=== PATIENT | male | born 2000 | race Caucasian/White ===

== ENCOUNTER 2024-03-01 13:05 | Outpatient (REF) | payer OTHER, SELFPAY | END 2024-03-01 13:06 | disposition home or self-care (01) | LOC: HO.BBR 13:05 | PROVIDERS: PCP Family Medicine; Visit Provider Internal Medicine Gastroenterology | DX: Z13.89 Encounter for screening for other disorder (principal) ==

== ENCOUNTER 2024-03-21 15:33 | Outpatient (REF) | payer OTHER, SELFPAY | END 2024-03-21 15:34 | disposition home or self-care (01) | LOC: HO.BBR 15:33 | PROVIDERS: PCP Family Medicine; Visit Provider Internal Medicine Gastroenterology | DX: Z13.89 Encounter for screening for other disorder (principal) ==

== ENCOUNTER 2024-04-04 15:38 | Outpatient (REF) | payer OTHER, SELFPAY ==
[2024-04-04 16:52] LABS: Ferritin 355 ng/mL (20-250)
--- OUTSIDE RECORDS SUMMARY | 2024-04-04 17:04 | XMS_ITS | Encounter Summary ---
Author Organization [facility] Address [address] [place] [address] Care Team Providers Care Mixing Plant Operator Name Role Phone Eugenia Doe MD Primary Care Provider [facility] Avani Rosenberg NP Primary Care Provider [phone] Nola Loja MD Primary Care Provider + Encounter Details Date Type Department Care Team Description 12/01/2018 Release of Information Medical Records [address] [place] [id number] Abstract, Provider Social History Tobacco Use Types Packs/Day Years Used Date Smoking Tobacco: Never Smokeless Tobacco: Never Comments:smokers outside Alcohol Use Standard Drinks/Week Comments Not Asked 0 (1 standard drink = 0.6 oz pur e alcohol) Sex Assigned at Date Recorded Not on file Job Start Date Occupation Industry Not on file Not on file Not on file documented as of this encounter Plan of Treatment Not on file documented as of this encounter Visit Diagnoses Not on filedocumented in this encounter Care Teams Mixing Plant Operator Relationship Specialty Start Date End Date Eugenia Doe MD PCP - General Pediatrics 11/05/12 12/22/19 Avani Johnson NP [address] [place] [address]44 PCP - General Pediatrics 12/23/19 06/12/22 Nola Loja MD [address] [place] [address]491 PCP - General Internal Medicine 06/13/22 documented as of this encounter
--- OUTSIDE RECORDS SUMMARY | 2024-04-04 17:04 | XMS_ITS | Clinical Summary ---
Author Organization [facility] [address] [facility] Address [address] [place] [address] Phone Care Team Providers Care Assistant Credit Manager Name Role Phone Nola Loja MD Primary Care Pr ovider Allergies Active Allergy Reactions Criticality Noted Date Comments Other 04/08/2021 Medications Medication Sig Dispensed Refills Start Date End Date Status triamcinolone (KENALOG) 0.025 % ointment Apply to affected area twice daily for 14 days 10/13/2023 Active Active Problems Problem Noted Date Diagnosed Date ADHD (attention deficit hyperactivity disorder) 01/15/2024 Overview (01/15/2024): On Strattera 18mg 01/14 - [facility] called for counseling, has an IEP in school - [facility] up for counseling at [facility] 11/18 No medication has IEP Had SSI Asperger syndrome 01/15/2024 Eczema 10/13/2023 Hepatic steatosis 10/24/2022 Underweight 01/25/2020 Overview (01/15/2024): 02/18 Tele GI Cyproheptadine, Complete stool testing., FU 6 month Spina bifida occulta 11/30/2017 Overview (01/15/2024): 12/17 Lower lumbar will refer to [facility] for further evaluation 12/17 Seen by [facility] no further evaluation needed Reassured mom this is normal varient Adolescent idiopathic scoliosis of thoracolumbar region 11/18/2017 Overview (01/15/2024): 12/17 Minimal at [facility] Recommend posture and hamstring stretching Short stature 11/18/2017 Intraventricular conduction delay 09/25/2014 Overview (01/15/2024): Found on EKG done for question of palpitations/tachycardia. Seen by Dr. Puga 10/14. Likely normal variant (and unrelated to complaint) but will follow by seeing yearly. 10/16 - mom reminded to call Dr. Puga for follow up 11/17 Reminded mom again 11/18 Referral placed for FU 12/[address] Puga EKG Indeterminate QRS axis and Voltage evidence of R Ventricular hypertrophy. Had to leave for school Echo in the summer 09/18 Echo completed Normal structure of heart And great vessels. PDD (pervasive developmental disorder) 9 Development delay 07/07/2008 Encounters Date Type Department Care Team Description 03/03/2024 Telephone Gastroenterology - [address] [address] Macrina Oliver MA 02/19/2024 11:00 AM EST Lab Draw Station - [address] [facility] [address] [place] [address] [place] [address] Hereditary hemochromatosis (CMS/HCC) 02/19/2024 10:45 AM EST Office Visit Gastroenterology - [address] [address] Adelia Alexandre MD Hereditary hemochromatosis (CMS/HCC) (Primary Dx) 02/19/2024 Telephone Gastroenterology - [address] [place] [address] [address] Macrina Oliver MA 02/19/2024 Telephone Gastroenterology - [address] [place] [address] [address] Macrina Oliver MA from Last 3 Months Immunizations Name Administration Dates Next Due DTaP (Infanrix) 6wks to less than 7yo ,04/06/2006,07/04/2003,10/21,2002,2002 [id number] (Pentacel) 2mo to less than 5yo 09/15/2006,08/11/2006,07/04/2003,10/21,2002,2002 HPV, Quadrivalent 06/16/2014,12/02/2013,10/01/19 14 Hepatitis B Pediatric (Enger ix B; Recombivax HB) to less than 20 yo 08/11/2006,01/23/2003,2002,04/02 IPV Inactivated polio (Ipol) 6wks and older 08/11/2006,04/26/2006,01/23/2003,08/15,2002 Influenza trivalent, 0.5mL, preservative free (Fluarix; FluLaval; Fluzone) ages 6mo and older (Afluria) 3 years and older 01/25/2020,11/18/2017,11/17/2016,12/05 Influenza trivalent, with pr eservative (Fluzone; Afluria) 6mo and older 11/23/2007,12/24/2006 MMR, measles mumps and rubel la Live (Priorix; M-M-R II) 12mo and older 09/15/2006,04/05/2003 MMRV, measles mumps rubella and varicella live (Proquad) 4yo to less than 7yo 04/06/2006 Meningococcal MCV4P 11/18/2018,06/16/2014 Pneumococcal Conjugate Vacci ne, 7 Valent 2004,2002,2002,05/30 Tdap Tetanus diptheria acell ular pertussis (Boostrix; Adacel) 7yo and older 09/30/2013 Varicella live (Varivax) 12m o and older 09/15/2006 Surgical History Surgery Date Site/Laterality Comments OTHER SURGICAL HISTORY PROCEDURE: DENIES PREVIOUS SURGERY Medical History Medical History Date Comments Development delay DX:Development delay; COMMENT: has OT; IEP at school Allergic rhinitis DX:Allergic rh initis Speech delay DX:Speech delay; COMMENT: has Speech Therapy Reactive airway disease DX:React dimitri airway disease Otitis 02/07 DX:Otitis Asperger syndrome DX:Asperger sy ndrome ADHD (attention deficit hype ractivity disorder) DX:ADHD (attention deficit hyperactivity disorder); COMMENT: on Strattera Learning disorder DX:Learning di sorder 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 Family History Medical History Relation Name Comments Thyroid disease Mother Allergies Other 1 Both Sides Asthma Other 2 Paternal Side Relation Name Status Comments Mother Other 1 Other 2 Social History Tobacco Use Types Packs/Day Years Used Date Smoking Tobacco: Never Smokeless Tobacco: Never Alcohol Use Standard Drinks/Week Comments Not Currently 0 (1 standard drink = 0.6 oz pur e alcohol) Sex and Gender Information Value Date Recorded Sex Assigned at Not on file Gender Identity Not on file Sexual Orientation Not on file Job Start Date Occupation Industry Not on file Not on file Not on file Obstetrics History Last Filed Vital Signs Vital Sign Reading Time Taken Comments Blood Pressure 110/80 10/13/2023 2:38 PM EDT Pulse 94 10/13/2023 2:38 PM EDT Temperature - - Respiratory Rate - - Oxygen Saturation - - Inhaled Oxygen Concentration - - Weight 56.2 kg (124 lb) 02/19/2024 10:40 AM EST Height 172.7 cm (5' 8 ) 02/19/2024 10:40 AM EST Body Mass Index 18.85 02/19/2024 10:40 AM EST Plan of Treatment Health Maintenance Due Date Last Done Comments Pneumococcal Vaccine: Pediatrics (0 to 5 Years) and At-Risk Patients (6 to 64 Years) (1 of 1 - PPSV23 or PCV20) 2008 2004, 2002, 2002, Additional history exists Depression Screening 02/01/2022 HIV Screening 02/01/2022 Hepatitis C Screening 02/01/2022 Social Influencers of Health Screening 02/01/2022 DTaP,Tdap,and Td Vaccines (7 - Td or Tdap) 10/01/2023 09/30/2013, 09/15/2006, 08/11/2006, Additional history exists COVID-19 Vaccine ( - season) 2023 09/14/2020, 08/17/2020 Influenza Vaccine (#1) 2023 , 11/18/2017, 11/17/2016, Additional history exists Cholesterol Screening (Lipid Panel) 10/11/2027 10/10/2022 Hepatitis B Vaccines Completed 08/11/2006, 01/23/2003, 2002, Additional history exists HIB Vaccines Completed 09/15/2006, 08/30, 08/11/2006, Additional history exists IPV Vaccines Completed 09/15/2006, 07/31, 08/11/2006, Additional history exists MMR Vaccines Completed 09/15/2006, 06/2006, 04/05/2003 Varicella Vaccines Completed 09/15/2006, 04/06/2006 HPV Vaccines Completed 06/16/2014, 04/2013, 09/30/2013 Meningococcal ACWY Vaccine Completed 11/18/2018, Hepatitis A Vaccines Aged Out No long er eligible based on patient's age to complete this topic RSV Immunization Patients Under 20 months Aged Out No longer eligible based on patient's age to complete this topic Procedures Procedure Name Priority Date/Time Associated Diagnosis Comments EXTERNAL CLINICAL LAB 03/22/2024 EXTERNAL CLINICAL LAB 03/02/2024 CBC WITH AUTO DIFFERENTIAL Routine 02/19/2024 11:05 AM EST Hereditary hemochromatosis (CMS/HCC) CBC AND DIFFERENTIAL Routine 02/19/2024 11:05 AM EST Hereditary hemochromatosis (CMS/HCC) FERRITIN Routine 02/19/2024 11:05 AM EST Hereditary hemochromatosis (CMS/HCC) IRON AND TIBC Routine 02/19/2024 11:05 AM EST Hereditary hemochromatosis (CMS/HCC) LIPID PANEL Routine 10/10/2022 from Last 3 Months or Most Recently Relevant to Health Maintenance Results * External clinical lab (03/22/2024) Only the most recent of2 resultswithin the time period is included. Provider [facility] LAB BLOOD ORDERA BLES * CBC auto differential (02/19/2024 11:05 AM EST) WBC 5.6 4.8 - 10.8 K/[facility] LAB HEMETOLOGY METHOD 02/19/2024 12:57 PM [facility] RBC 4.90 4.50 - 5.50 M/mcL LAB HEMETOLOGY METHOD 02/19/2024 12:57 PM [facility] Hemoglobin 15.3 13.5 - 17.5 g/dL LAB HEMETOLOGY METHOD 02/19/2024 12:57 PM [facility] Hematocrit 45.4 42.0 - 54.0 % LAB HEMETOLOGY METHOD 02/19/2024 12:57 PM [facility] MCV 93.4 79.0 - 98.0 FL LAB HEMETOLOGY METHOD 02/19/2024 12:57 PM [facility] MCH 31.5 27.0 - 32.0 pcg LAB HEMETOLOGY METHOD 02/19/2024 12:57 PM [facility] MCHC 33.7 32.0 - 37.0 g/dL LAB HEMETOLOGY METHOD 02/19/2024 12:57 PM [facility] RDW 12.0 11.0 - 15.0 % LAB HEMETOLOGY METHOD 02/19/2024 12:57 PM [facility] Platelets 343 130 - 400 K/mcL LAB HEMETOLOGY METHOD 02/19/2024 12:57 PM [facility] MPV 9.1 7.0 - 11.0 FL LAB HEMETOLOGY METHOD 02/19/2024 12:57 PM [facility] NRBC 0.0 <1.0 % LAB HEMETOLOGY METHOD 02/19/2024 12:57 PM [facility] NRBC Absolute 0.00 <0.10 K/mcL LAB HEMETOLOGY METHOD 02/19/2024 12:57 PM [facility] Neutrophils Relative 54.7 % LAB HEMETOLOGY METHOD 02/19/2024 12:57 PM [facility] Lymphocytes Relative 32.1 % LAB HEMETOLOGY METHOD 02/19/2024 12:57 PM [facility] Monocytes Relative 8.1 % LAB HEMETOLOGY METHOD 02/19/2024 12:57 PM [facility] Eosinophils Relative 3.8 % LAB HEMETOLOGY METHOD 02/19/2024 12:57 PM [facility] Basophils Relative 1.1 % LAB HEMETOLOGY METHOD 02/19/2024 12:57 PM [facility] Immature Granulocytes Relative 0.2 % LAB HEMETOLOGY METHOD 02/19/2024 12:57 PM [facility] Neutrophils Absolute 3.04 1.50 - 7.00 K/mcL LAB HEMETOLOGY METHOD 02/19/2024 12:57 PM [facility] Lymphocytes Absolute 1.78 1.00 - 5.00 K/mcL LAB HEMETOLOGY METHOD 02/19/2024 12:57 PM [facility] Monocytes Absolute 0.45 0.20 - 1.00 K/mcL LAB HEMETOLOGY METHOD 02/19/2024 12:57 PM [facility] Eosinophils Absolute 0.21 0.00 - 0.50 K/mcL LAB HEMETOLOGY METHOD 02/19/2024 12:57 PM [facility] Basophils Absolute 0.06 0.00 - 0.20 K/mcL LAB HEMETOLOGY METHOD 02/19/2024 12:57 PM [facility] Immature Granulocytes Absolute 0.01 0.00 - 0.03 K/mcL LAB HEMETOLOGY METHOD 02/19/2024 12:57 PM [facility] Blood Venous blood specimen / Unknown Venipuncture / Unknown 02/19/2024 11:05 AM EST 02/19/2024 12:31 PM EST Adelia Alexandre MD LAB BLOOD ORDERABLES [facility] [address] [place] [address], [place] [phone] * (ABNORMAL) Iron and TIBC (02/19/2024 11:05 AM EST) Pathologist [facility] Iron 225(H) 50 - 160 mcg/dL LAB CHEMISTRY METHOD 02/19/2024 2:[address] [facility] TIBC 240(L) 250 - 450 mcg/dL LAB CHEMISTRY METHOD 02/19/2024 2:[address] [facility] Iron Saturation 94(H) 20 - 50 % LAB CHEMISTRY METHOD 02/19/2024 2:[address] [facility] Blood Venous blood specimen / Unknown Venipuncture / Unknown 02/19/2024 11:05 AM EST 02/19/2024 12:31 PM EST Adelia Alexandre MD LAB BLOOD ORDERABLES Performing Organization Address City/[facility]/ZIP Co de Phone Number [facility] [address] [place] [address], [place] [phone] * (ABNORMAL) Ferritin (02/19/2024 11:05 AM EST) [facility] Ferritin 684(H) 26 - 388 ng/mL LAB CHEMISTRY METHOD 02/19/2024 2:[address] [facility] Blood Venous blood specimen / Unknown Venipuncture / Unknown 02/19/2024 11:05 AM EST 02/19/2024 12:31 PM EST Adelia Alexandre MD LAB BLOOD ORDERABLES [facility] [address] [place] [address], [place] [phone] * Lipid panel (10/10/2022) [facility] LDL/HDL Ratio 2 0 - 4 Triglycerides 77 0 - 150 mg/dL Cholesterol 171 0 - 200 mg/dL HDL 78 40 mg/dL LDL Cholesterol 78 0 - 100 mg/dL Blood Venous blood specimen / Unknown Historical Provider LAB BLOOD ORDERAB LES from Last 3 Months or Most Recently Relevant to Health Maintenance Care Teams Assistant Credit Manager Relationship Specialty Start Date End Date Nola Loja MD [address] [facility] [place] [id number] PCP - General Internal Medicine 02/19/24
--- OUTSIDE RECORDS SUMMARY | 2024-04-04 17:04 | XMS_ITS | Encounter Summary ---
Author Organization [facility] Address [address] [place] [address] Care Team Providers Care Health Science Instructor Name Role Phone Eugenia Doe MD Primary Care Provider [facility]ail Avani Rosenberg NP Primary Care Provider [phone] Nola Loja MD Primary Care Provider + Encounter Details Date Type Department Care Team Description 12/16/2017 Nurse Administrator Report Medical Records [address] [place] [address] Children, [facility] For Social History Tobacco Use Types Packs/Day Years [...] on filedocumented in this encounter Care Teams Health Science Instructor Relationship Specialty Start Date End Date Eugenia Doe MD PCP - General Pediatrics 11/05/12 12/22/19 Avani Johnson NP [address] [place] [address] PCP - General Pediatrics 12/23/19 06/12/22 Nola Loja MD [address] [place] [address] PCP - General Internal Medicine 06/13/22 documented as of this encounter
--- OUTSIDE RECORDS SUMMARY | 2024-04-04 17:04 | XMS_ITS | Encounter Summary ---
Author Organization [facility] Address [address] [place] [address] Care Team Providers Care Manager Med Surg Name Role Phone Eugenia Doe MD Primary Care Provider [facility] Avani Rosenberg NP Primary Care Provider [phone] Nola Loja MD Primary Care Provider + Encounter Details Date Type Department Care Team Description 05/10/2014 MACHINE FIXER/MassPat Report Medical Records [address] [place] [address] Abstract, Provider Social History Tobacco Use Types Packs/Day Years Used Date Smoking Tobacco: Passive Smo ke Exposure - Never Smoker Comments:mirian'oleg Alcohol Use Standard Drinks/Week Comments Not Asked [...] on filedocumented in this encounter Care Teams Manager Med Surg Relationship Specialty Start Date End Date Eugenia Doe MD PCP - General Pediatrics 11/05/12 12/22/19 Avani Johnson NP [address] [place] [address] PCP - General Pediatrics 12/23/19 06/12/22 Nola Loja MD [address] [place] [address] [phone] PCP - General Internal Medicine 06/13/22 documented as of this encounter
--- OUTSIDE RECORDS SUMMARY | 2024-04-04 17:04 | XMS_ITS | Encounter Summary ---
Author Organization [facility] Address [address] [place] [address] Care Team Providers Care Rounding Machine Tender Name Role Phone Eugenia Doe MD Primary Care Provider Unavail Avani Rosenberg NP Primary Care Provider [phone] Nola Loja MD Primary Care Provider + Encounter Details Date Type Department Care Team Description 09/22/2014 Chemical Recovery Operator Report Medical Records [address] [place] [address] Dionisio Puga Social History Tobacco Use Types Packs/Day Years [...] on filedocumented in this encounter Care Teams Rounding Machine Tender Relationship Specialty Start Date End Date Eugenia Doe MD PCP - General Pediatrics 11/05/12 12/22/19 Avani Johnson NP [address] [place] [address] PCP - General Pediatrics 12/23/19 06/12/22 Nola Loja MD [address] [place] [address] [phone] PCP - General Internal Medicine 06/13/22 documented as of this encounter
--- OUTSIDE RECORDS SUMMARY | 2024-04-04 17:04 | XMS_ITS | Encounter Summary ---
Author Organization [facility] Address [address] [place] [address] Care Team Providers Care Community Development Worker Name Role Phone Avani Johnson NP Primary Care Provider [phone] Nola Loja MD Primary Care Provider + Reason for Visit * Reason Onset Date Comments Pedi 04/09/2021 Encounter Details Date Type Department Care Team Description 04/09/2021 Telephone Adult Medicine - [place] [address] [place] [address] Avani Johnson NP [address] [place] [address] Pedi Social History Tobacco Use Types Packs/Day Years Used Date Smoking Tobacco: Never Smokeless Tobacco: Never Comments:smokers outside Alcohol Use Standard Drinks/Week Comments Not Asked 0 (1 standard drink = 0.6 oz pur e alcohol) Sex Assigned at Date Recorded Not on file Job Start Date Occupation Industry Not on file Not on file Not on file COVID-19 Exposure Response Date Recorded In the last month, have you been in contact with someone who was confirmed or suspected to have Coronavirus / COVID-19? No / Unsure 04/08/2021 2:35 PM EST documented as of this encounter Miscellaneous Notes * Telephone Encounter - Doris Longoria M.A. - 05/03/2021 1:37 PM EST Ensure was denied, [facility] states they have notified parents of denial Fyi to [place] [phone] Prior Auth jose Longoria M.A. Regional Prior Authorizations Ext [phone] Fax: [phone] [place] [phone] Prior Keren garcia * Telephone Encounter - Doris Longoria M.A. - 04/29/2021 10:49 AM EST Spoke to dimas on 04/29 and the authorization is still pending on the ensure * Telephone Encounter - Doris Longoria M.A. - 04/15/2021 4:21 PM EST Spoke to dimas and paperwork was not received refaxed * Telephone Encounter - Doris Longoria M.A. - 04/09/2021 11:48 AM EST Faxed to [facility]as Medical necessity letter Formula script Insurance info Growth charts [facility] notes documented in this encounter Plan of Treatment Not on file documented as of this encounter Visit Diagnoses Not on filedocumented in this encounter Care Teams Community Development Worker Relationship Specialty Start Date End Date Avani Johnson NP [address] [place] [address] PCP - General Pediatrics 12/23/19 06/12/22 Nola Loja MD [address] [place] [address] PCP - General Internal Medicine 06/13/22 documented as of this encounter
--- OUTSIDE RECORDS SUMMARY | 2024-04-04 17:04 | XMS_ITS | Encounter Summary ---
Author Organization [facility] Address [address] [place] [address] Care Team Providers Care Web Analytics Specialist Name Role Phone Eugenia Doe MD Primary Care Provider [facility] Avani Rosenberg NP Primary Care Provider [phone] Nola Loja MD Primary Care Provider + Encounter Details Date Type Department Care Team Description 09/06/2019 Property Damage Claims Adjustor Report Medical Records [address] [place] [address] Dionisio Puga Social History Tobacco Use Types [...] on filedocumented in this encounter Care Teams Web Analytics Specialist Relationship Specialty Start Date End Date Eugenia Doe MD PCP - General Pediatrics 11/05/12 12/22/19 Avani Johnson NP [address] [place] [address] PCP - General Pediatrics 12/23/19 06/12/22 Nola Loja MD [address] [place] [address] PCP - General Internal Medicine 06/13/22 documented as of this encounter
--- OUTSIDE RECORDS SUMMARY | 2024-04-04 17:04 | XMS_ITS | Encounter Summary ---
Author Organization [facility] Address [address] [place] [address] Care Team Providers Care Food Service Worker Name Role Phone Eugenia Doe MD Primary Care Provider Unavail Avani Rosenberg NP Primary Care Provider [phone] Nola Loja MD Primary Care Provider + Encounter Details Date Type Department Care Team Description 09/22/2014 Annual Giving Officer Report Medical Records [address] [place] [address] Dionisio Puga Social History Tobacco Use Types [...] on filedocumented in this encounter Care Teams Food Service Worker Relationship Specialty Start Date End Date Eugenia Doe MD PCP - General Pediatrics 11/05/12 12/22/19 Avani Johnson NP [address] [place] [address] PCP - General Pediatrics 12/23/19 06/12/22 Nola Loja MD [address] [place] [address] [phone] PCP - General Internal Medicine 06/13/22 documented as of this encounter
--- OUTSIDE RECORDS SUMMARY | 2024-04-04 17:04 | XMS_ITS | Encounter Summary ---
Author Organization [facility] Address [address] [place] [address] Care Team Providers Care Litigation Assistant Name Role Phone Eugenia Doe MD Primary Care Provider [facility] Avani Rosenberg NP Primary Care Provider [phone] Nola Loja MD Primary Care Provider + Encounter Details Date Type Department Care Team Description 12/29/2016 Release of Information Medical Records [address] [place] [id number] Abstract, Provider Social History Tobacco Use Types [...] on filedocumented in this encounter Care Teams Litigation Assistant Relationship Specialty Start Date End Date Eugenia Doe MD PCP - General Pediatrics 11/05/12 12/22/19 Avani Johnson NP [address] [place] [address] PCP - General Pediatrics 12/23/19 06/12/22 Nola Loja MD [address] [place] [address] PCP - General Internal Medicine 06/13/22 documented as of this encounter
== END 2024-04-04 15:39 | disposition home or self-care (01) ==
LOC: HO.BBR 15:38
PROVIDERS: PCP Family Medicine; Visit Provider Internal Medicine Gastroenterology
DX: E83.110 Hereditary hemochromatosis (principal)
CPT/HCPCS: 36415; 82728

== ENCOUNTER 2024-04-22 10:48 | Outpatient (REF) | payer OTHER, SELFPAY ==
--- OUTSIDE RECORDS SUMMARY | 2024-04-22 11:53 | XMS_ITS | Encounter Summary ---
Author Organization [facility] Address [address] [place] [address] Care Team Providers Care Bagger Meat Name Role Phone Eugenia Doe MD Primary Care Provider Unavail Avani Rosenberg NP Primary Care Provider [phone] Nola Loja MD Primary Care Provider + Encounter Details Date Type Department Care Team Description 12/16/2017 Quality Engineer Medical Device Report Medical Records [address] [place] [address] Children, [facility] Social History Tobacco Use Types Packs/Day [...] on filedocumented in this encounter Care Teams Bagger Meat Relationship Specialty Start Date End Date Eugenia Doe MD PCP - General Pediatrics 11/05/12 12/22/19 Avani Johnson NP [address] [place] [address] PCP - General Pediatrics 12/23/19 06/12/22 Nola Loja MD [address] [place] [id number] PCP - General Internal Medicine 06/13/22 documented as of this encounter
--- OUTSIDE RECORDS SUMMARY | 2024-04-22 11:53 | XMS_ITS | Encounter Summary ---
Author Organization [facility] Address [address] [place] [address] Care Team Providers Care Securities Counselor Name Role Phone Eugenia Doe MD Primary Care Provider [facility] Avani Rosenberg NP Primary Care Provider [phone] Nola Loja MD Primary Care Provider + Encounter Details Date Type Department Care Team Description 12/22/2018 Babysitter Report Medical Records [address] [place] [address] Dionisio Puga Social History Tobacco Use Types [...] on filedocumented in this encounter Care Teams Securities Counselor Relationship Specialty Start Date End Date Eugenia Doe MD PCP - General Pediatrics 11/05/12 12/22/19 Avani Johnson NP [address] [place] [phone] PCP - General Pediatrics 12/23/19 06/12/22 Nola Loja MD [address] [place] [phone] PCP - General Internal Medicine 06/13/22 documented as of this encounter
--- OUTSIDE RECORDS SUMMARY | 2024-04-22 11:53 | XMS_ITS | Encounter Summary ---
Author Organization [facility] Address [address] [place] [address] Care Team Providers Care Critical Care Unit Nurse Name Role Phone Eugenia Doe MD Primary Care Provider [facility] Avani Rosenberg NP Primary Care Provider [phone] Nola Loja MD Primary Care Provider + Encounter Details Date Type Department Care Team Description 09/06/2019 Ratchet Setter Report Medical Records [address] [place] [address] Dionisio Puga Social History Tobacco Use Types [...] on filedocumented in this encounter Care Teams Critical Care Unit Nurse Relationship Specialty Start Date End Date Eugenia Doe MD PCP - General Pediatrics 11/05/12 12/22/19 Avani Johnson NP [address] [place] [address] PCP - General Pediatrics 12/23/19 06/12/22 Nola Loja MD [address] [place] [address] PCP - General Internal Medicine 06/13/22 documented as of this encounter
--- OUTSIDE RECORDS SUMMARY | 2024-04-22 11:53 | XMS_ITS | Encounter Summary ---
Author Organization [facility] Address [address] [place] [address] Care Team Providers Care Chemist Organic Name Role Phone Nola Loja MD Primary Care Pr ovider Encounter Details Date Type Department Care Team (Late st Contact Info) Description 04/05/2024 Telephone Gastroenterology - [address] [place] [address] Macrina Oliver MA Social History Tobacco Use Types Packs/Day Years Used Date Smoking Tobacco: Never Smokeless Tobacco: Never Alcohol Use Standard Drinks/Week Comments Not Currently 0 (1 standard drink = 0.6 oz pur e alcohol) Sex and Gender Information Value Date Recorded Sex Assigned at Not on file Legal Sex Male 9:56 PM EST Gender Identity Not on file Sexual Orientation Not on file documented as of this encounter Progress Notes * Macrina Oliver MA - 04/05/2024 12:54 PM EST Spoke with pt per Dr Alexandre ferritin is improving. Was 684 in January 355. Phlebotomy is working. Goal is Ferritin 50 or below. Then pt will only need phlebotomy a few times a year. * Macrina Oliver MA - 04/05/2024 12:54 PM EST ----- Message from Doe Alexandre MD sent at 04/05/2024 12:37 PM EST ----- Ferritin is improving. Was 684 in January 355. Phlebotomy is working. Good! Goal is [id number] or below. Then you will only need phlebotomy a few times a year. documented in this encounter Plan of Treatment Not on file documented as of this encounter Visit Diagnoses Not on filedocumented in this encounter Care Teams Chemist Organic Relationship Specialty Start Date End Date Nola Loja MD [address] [place] [id number] PCP - General Internal Medicine 02/19/24 documented as of this encounter
--- OUTSIDE RECORDS SUMMARY | 2024-04-22 11:53 | XMS_ITS | Encounter Summary ---
Author Organization [facility] Address [address] [place] [address] Care Team Providers Care Structural Iron Erector Name Role Phone Avani Johnson NP Primary Care Provider [phone] Nola Loja MD Primary Care Provider + Encounter Details Date Type Department Care Team Description 02/22/2020 Welder/Fabricator Report Medical Records [address] [place] [address] Christopher Asher MD Social History Tobacco Use Types Packs/Day Years [...] have Coronavirus / COVID-19? No / Unsure 01/25/2020 10:26 AM EST documented as of this encounter Plan of Treatment Not on file documented as of this encounter Visit Diagnoses Not on filedocumented in this encounter Care Teams Structural Iron Erector Relationship Specialty Start Date End Date Avani Johnson NP [address] [place] [address] PCP - General Pediatrics 12/23/19 06/12/22 Nola Loja MD [address] [place] [address] [phone] PCP - General Internal Medicine 06/13/22 documented as of this encounter
--- OUTSIDE RECORDS SUMMARY | 2024-04-22 11:53 | XMS_ITS | Encounter Summary ---
Author Organization [facility] Address [address] [place] [address] Care Team Providers Care Jet Worker Name Role Phone Eugenia Doe MD Primary Care Provider Unavail Avani Rosenberg NP Primary Care Provider [phone] Nola Loja MD Primary Care Provider + Encounter Details Date Type Department Care Team Description 09/22/2014 Heat Treat Worker Report Medical Records [address] [place] [address] Dionisio Puga Social History Tobacco Use Types [...] on filedocumented in this encounter Care Teams Jet Worker Relationship Specialty Start Date End Date Eugenia Doe MD PCP - General Pediatrics 11/05/12 12/22/19 Avani Johnson NP [address] [place] [address] PCP - General Pediatrics 12/23/19 06/12/22 Nola Loja MD [address] [place] [address] PCP - General Internal Medicine 06/13/22 documented as of this encounter
--- OUTSIDE RECORDS SUMMARY | 2024-04-22 11:53 | XMS_ITS | Clinical Summary ---
Author Organization [facility] Address [address] [place] [address] Care Team Providers Care Slat Basket Maker Name Role Phone Nola Loja MD Primary Care Provider + Allergies Active Allergy Reactions Severity Noted Date Comments Seasonal Allergies 04/08/2021 Medications Medication Sig Dispensed Refills Start Date End Date Status triamcinolone (KENALOG) 0.025 % ointment Apply to affected area twice daily for 14 days 30 g 1 10/13/2023 Active Active Problems Patient Care Coordination No te Formatting of this note is d ifferent from the original. If you or your child's teachers are noticing that Jose is demonstrating any of the following behaviors on a frequent basis, please share this with his doctor ?? not paying attention ?? daydreaming a lot ?? not being able to fall asleep easily ?? not listening ?? being easily distracted form schoolwork or play ?? forgetting things ?? in constant motion, can't sit still ?? squirming or fidgeting ?? talking too much ?? not being able to play quietly ?? acting and speaking without thinking ?? unable to wait for his turn ?? interrupting others Jose's Care Goals In order to best manage your child's ADHD it is important to have clear care goals. These goals include: ?? working with the school/teachers, other family members and adults who see the child regularly (coaches, music instructors, etc) to help manage the symptoms of ADHD ?? taking medication as directed by your child's doctor ?? meeting with a therapist regularly if this is part of your treatment plan Your Results and your Goals Your Result/Date of Completion Your Goal/How Often Wt Readings from Last 1 Encounters: 12/26/14 68 lb (30.845 kg) (1.84%*) * Growth percentiles are based on CDC 2-20 Years data. Maintain Healthy Weight Your Action Plan Your ADHD is well controlled and no changes are required to your current plan. Contact me if you experience any barriers to care such as inability to purchase your medication, difficulty getting to your appointments or difficulty understanding your care plan Mom knows to call if dosing needs adjustment Strattera 18mg daily for academic year daily. Educational Resources Center for Disease Control (www.cdc.gov/ncbddd/adhd/) [place] [employer] Pediatrics (www.aap.org/healthtopics/adhd.cfm) National Resource Center for ADHD (www.vegq7kfto.org) Children and Adults with Attention Deficit Hyperactivity Disorder (www.christopher.org) [place] [employer] Access Project (www.mcpap.TubeMogul) This care plan was created in collaboration with Jose Jo on 12/26/2014 Problem Noted Date Eczema 10/13/2023 Hepatic steatosis 10/24/2022 Underweight 01/25/2020 Overview: 02/18 Tele GI Cyproheptadine, Complete stool testing., FU 6 month Spina bifida occulta 11/30/2017 Overview: 12/17 Lower lumbar will refer to [facility] for further evaluation 12/17 Seen by Arias no further evaluation needed Reassured mom this is normal varient Short stature 11/18/2017 Adolescent [facility] 11/18/2017 Overview: 12/17 Minimal at [facility] Recommend posture and hamstring stretching Intraventricular conduction delay 2014 Overview: Found on EKG done for question of [...] And great vessels. PDD (pervasive developmental disorder) 1 Development delay 07/07/2008 Asperger syndrome ADHD (attention deficit hyperactivity di sorder) Overview: On Strattera 18mg 01/14 - [facility] called for counseling, has an IEP in school - set up for counseling at [facility] 11/18 No medication has IEP Had SSI Resolved Problems Problem Noted Date Resolved Date Family circumstance 07/12/2018 04/08/2021 Overview: 07/18 DCF called in for update Immunizations Name Administration Dates Next Due COVID-19 (Moderna) 09/14/2020,08/17/2020 DTaP 08/11/2006, 7,07/04/2003,10/21,2002,2002 HIB 09/15/2006, 7,07/04/2003,10/21,2002,2002 HPV (Gardasil) 06/16/2014,12/02/2013,09/30/2013 Hepatitis B-3 Dose (<19yrs) 08/11/2006,1 2002,2002,04/02 Influenza (6-35 months) 11/23/2007,12/24/2006 Influenza (> 6 Months) 12/05/2008 Influenza (>6 Months) Split Preservative Free 01/25/2020,11/18/2017,11/17/2016 Influenza Vaccine-quadrivale nt 4 Years Plus 11/18/2017 MMR (Aeplnqz-Kzwmr-Ducwejj) 09/15/2006, 4 MMRV (Szacjmf-Letvy-Atsxifq-Varicella) 7 Meningococcal (Menactra) 11/18/2018,06/16/2014 Pneumococcal(Pedi) Conjugate PCV-7 04/01,2002,2002,05/30 Polio (IPV) 08/11/2006, 7,01/23/2003,08/15,2002 Tdap 09/30/2013 Varicella 09/15/2006 Family History Medical History Relation Name Comments Thyroid Disorder Mother Allergies Other 1 Both Sides Asthma Other 2 Paternal Side Relation Name Status Comments Mother Other 1 Other 2 Social History Tobacco Use Types Packs/Day Years Used Date Smoking Tobacco: Never Smokeless Tobacco: Never Tobacco Cessation:Counseling Given: Not Answered Comments:smokers outside Alcohol Use Standard Drinks/Week Comments Not Currently 0 (1 standard drink = 0.6 oz pur e alcohol) Sex Assigned at Date Recorded Not on file Job Start Date Occupation Industry Not on file Not on file Not on file Last Filed Vital Signs Vital Sign Reading Time Taken Comments Blood Pressure 110/80 10/13/2023 2:38 PM EDT Pulse 94 10/13/2023 2:38 PM EDT Temperature 36.7 ??C (98 ??F) 10/13/2023 2:38 PM EDT Respiratory Rate 12 10/13/2023 2:38 PM EDT Oxygen Saturation 98% 10/10/2022 11:58 AM EDT Inhaled Oxygen Concentration - - Weight 59.4 kg (131 lb) 10/13/2023 2:38 PM EDT Height 174 cm (5' 8.5 ) 10/13/2023 2:38 PM EDT Body Mass Index 19.63 10/13/2023 2:38 PM EDT Plan of Treatment Health Maintenance Due Date Last Done Comments GONORRHEA & CHLAMYDIA SCREENING 04/08/2022 04/08/2021, 01/25/2020, 11/18/2018 DTAP/TDAP/TD (7 - Td or Tdap) 10/01/2023, 08/11/2006, 04/06/2006, Additional history exists Covid-19 Vaccine (3 - 2022-2 4 season) 2023 09/14/2020, 08/17/2020 INFLUENZA (#1) 2023 01/25/2020, 10/31, 11/18/2017, Additional history exists DEPRESSION SCREENING/FOLLOWUP 03/02/2024 (Completed), 04/08/2021, 01/25/2020, Additional history exists SOCIAL NEEDS SCREENING 03/02/2024 , 01/25/2020, 11/18/2018 BASELINE HEALTH EXAM 18-39 10/11/2027 10/10/2022, CHOLESTEROL SCREENING 10/11/2027 10/10/2022 PNEUMOCOCCAL VACCINE FOR HIG H RISK PATIENTS (#1) 2067 HUMAN PAPILLOMAVIRUS (HPV) Completed 06/16, 12/02/2013, 09/30/2013 Care Teams Slat Basket Maker Relationship Specialty Start Date End Date Nola Loja MD [address] [place] [phone] PCP - General Internal Medicine 06/13/22
--- OUTSIDE RECORDS SUMMARY | 2024-04-22 11:53 | XMS_ITS | Encounter Summary ---
Author Organization [facility] Address [address] [place] [address] Care Team Providers Care School Director Name Role Phone Eugenia Doe MD Primary Care Provider Unavail Avani Rosenberg NP Primary Care Provider [phone] Nola Loja MD Primary Care Provider + Encounter Details Date Type Department Care Team Description 09/22/2014 Lay Out And Detail Drafter Report Medical Records [address] [place] [address] Dionisio Puga Social History Tobacco Use Types [...] on filedocumented in this encounter Care Teams School Director Relationship Specialty Start Date End Date Eugenia Doe MD PCP - General Pediatrics 11/05/12 12/22/19 Avani Johnson NP [address] [place] [address] PCP - General Pediatrics 12/23/19 06/12/22 Nola Loja MD [address] [place] [address] PCP - General Internal Medicine 06/13/22 documented as of this encounter
--- OUTSIDE RECORDS SUMMARY | 2024-04-22 11:53 | XMS_ITS | Encounter Summary ---
Author Organization [facility] Address [address] [place] [address] Care Team Providers Care Head Housekeeper Name Role Phone Avani Johnson NP Primary Care Provider [phone] Nola Loja MD Primary Care Provider + Encounter Details Date Type Department Care Team Description 04/10/2021 Release of Information Medical Records [address] [place] [phone] Abstract, Provider Social History Tobacco Use Types [...] PM EST documented as of this encounter Plan of Treatment Not on file documented as of this encounter Visit Diagnoses Not on filedocumented in this encounter Care Teams Head Housekeeper Relationship Specialty Start Date End Date Avani Johnson NP [address] [place] [address] PCP - General Pediatrics 12/23/19 06/12/22 Nola Loja MD [address] [place] [address] [phone] PCP - General Internal Medicine 06/13/22 documented as of this encounter
--- OUTSIDE RECORDS SUMMARY | 2024-04-22 11:54 | XMS_ITS | Clinical Summary ---
Author Organization [facility] [address] [facility] Address [address] [place] [address] Phone Care Team Providers Care Medical Driver Name Role Phone Nola Loja MD Primary Care Pr ovider Allergies Active Allergy Reactions Criticality Noted Date Comments Other 04/08/2021 Medications triamcinolone (KENALOG) 0.025 % ointment Apply to [...] (01/15/2024): 12/17 Lower lumbar will refer to [facility] for further evaluation 12/17 Seen by Arias no further evaluation needed Reassured mom this is normal varient Adolescent idiopathic scoliosis of thoracolumbar region 11/18/2017 Overview (01/15/2024): 12/17 Minimal at [facility] Recommend posture and hamstring stretching Short stature [...] Encounters Date Type Department Care Team Description 04/05/2024 Telephone Gastroenterology - [address] [place] [phone] Macrina Oliver MA 03/03/2024 Telephone Gastroenterology - [address] [place] [address] [phone] Macrina Oliver MA 02/19/2024 11:00 AM EST Lab Draw Station - [address] [place] [phone] Hereditary hemochromatosis (CMS/HCC) 02/19/2024 10:45 AM EST Office Visit [facility] [address] [address] Adelia Alexandre MD Hereditary hemochromatosis (CMS/HCC) (Primary Dx) 02/19/2024 Telephone Gastroenterology - [address] [phone] Macrina Oliver MA 02/19/2024 Telephone Gastroenterology - [address] [place] [address] [phone] Macrina Oliver MA from Last 3 Months Immunizations Name Administration Dates Next Due DTaP (Infanrix) 6wks to less than 7yo ,04/06/2006,07/04/2003,10/21,2002,2002 ASsO-SQX-FUL (Pentacel) 2mo to less than 5yo 09/15/2006,08/11/2006,07/04/2003,10/21,2002,2002 [...] on file Sexual Orientation Not on file Obstetrics History Last Filed [...] to 64 Years) (1 of 1 - PPSV23) 2008 2004, 2002, 2002, Additional history exists Meningococcal B Vacine (1 of 2 - Standard) 2018 Depression Screening 02/01/2022 HIV Screening 02/01/2022 Hepatitis C Screening 02/01/2022 Social Influencers of Health Screening 02/01/2022 DTaP,Tdap,and Td Vaccines (7 - Td or Tdap) 10/01/2023 09/30/2013, 09/15/2006, 08/11/2006, Additional history exists COVID-19 Vaccine ( - season) 2023 09/14/2020, 08/17/2020 Influenza Vaccine (#1) 2023 0, 11/18/2017, 11/17/2016, Additional history exists Cholesterol Screening [...] Date/Time Associated Diagnosis Comments EXTERNAL CLINICAL LAB 04/05/2024 EXTERNAL CLINICAL LAB 03/22/2024 EXTERNAL CLINICAL LAB [...] Health Maintenance Results * External clinical lab (04/05/2024) Only the most recent of3 resultswithin the time period is included. us Provider [facility] LAB BLOOD ORDERABLES Fin al Result * CBC auto differential (02/19/2024 11:05 AM EST) WBC 5.6 4.8 - 10.8 K/mcL LAB HEMETOLOGY METHOD 02/19/2024 12:57 PM [facility] RBC 4.90 4.50 - 5.50 M/mcL LAB HEMETOLOGY METHOD 02/19/2024 12:57 PM [facility] Hemoglobin 15.3 13.5 - 17.5 g/dL LAB HEMETOLOGY METHOD 02/19/2024 12:57 PM [facility] Hematocrit 45.4 42.0 - 54.0 % LAB HEMETOLOGY METHOD 02/19/2024 12:57 PM [facility] MCV 93.4 79.0 - 98.0 FL LAB HEMETOLOGY METHOD 02/19/2024 12:57 PM [facility] MCH 31.5 27.0 - 32.0 pcg LAB HEMETOLOGY METHOD 02/19/2024 12:57 PM [facility] MCHC 33.7 32.0 - 37.0 g/dL LAB HEMETOLOGY METHOD 02/19/2024 12:57 PM [facility] RDW 12.0 11.0 - 15.0 % LAB HEMETOLOGY METHOD 02/19/2024 12:57 PM [facility] Platelets 343 130 - 400 K/mcL LAB HEMETOLOGY METHOD 02/19/2024 12:57 PM [facility] MPV 9.1 7.0 - 11.0 FL LAB HEMETOLOGY METHOD 02/19/2024 12:57 PM [facility] NRBC 0.0 <1.0 % LAB HEMETOLOGY METHOD 02/19/2024 12:57 PM [facility] NRBC Absolute 0.00 <0.10 K/mcL LAB HEMETOLOGY METHOD 02/19/2024 12:57 PM [facility] Neutrophils Relative 54.7 % LAB HEMETOLOGY METHOD 02/19/2024 12:57 PM [facility] Lymphocytes Relative 32.1 % LAB HEMETOLOGY METHOD 02/19/2024 12:57 PM [facility] Monocytes Relative 8.1 % LAB HEMETOLOGY METHOD 02/19/2024 12:57 PM [facility] Eosinophils Relative 3.8 % LAB HEMETOLOGY METHOD 02/19/2024 12:57 PM [facility] Basophils Relative 1.1 % LAB HEMETOLOGY METHOD 02/19/2024 12:57 PM [facility] Immature Granulocytes Relative 0.2 % LAB HEMETOLOGY METHOD 02/19/2024 12:57 PM [facility] Neutrophils Absolute 3.04 1.50 - 7.00 K/mcL LAB HEMETOLOGY METHOD 02/19/2024 12:57 PM [facility] Lymphocytes Absolute 1.78 1.00 - 5.00 K/mcL LAB HEMETOLOGY METHOD 02/19/2024 12:57 PM [facility] Monocytes Absolute 0.45 0.20 - 1.00 K/mcL LAB HEMETOLOGY METHOD 02/19/2024 12:57 PM [facility] Eosinophils Absolute 0.21 0.00 - 0.50 K/mcL LAB HEMETOLOGY METHOD 02/19/2024 12:57 PM [facility] Basophils Absolute 0.06 0.00 - 0.20 K/mcL LAB HEMETOLOGY METHOD 02/19/2024 12:57 PM [facility] Immature Granulocytes Absolute 0.01 0.00 - 0.03 K/mcL LAB HEMETOLOGY METHOD 02/19/2024 12:57 PM EST [facility] Blood Venous blood specimen / Unknown Venipuncture / Unknown 02/19/2024 11:05 AM EST 02/19/2024 12:31 PM EST us Adelia Alexandre MD LAB BLOOD ORDERABLES Final Res ult Performing Organization Address [facility]/ZIP Co de Phone Number [facility] [address] [place] [address], [place] [phone] * (ABNORMAL) Iron and TIBC (02/19/2024 11:05 AM EST) Iron 225(H) 50 - 160 mcg/dL LAB CHEMISTRY METHOD 02/19/2024 2:12 PM EST [facility] TIBC 240(L) 250 - 450 mcg/dL LAB CHEMISTRY METHOD 02/19/2024 2:12 PM EST [facility] Iron Saturation 94(H) 20 - 50 % LAB CHEMISTRY METHOD 02/19/2024 2:12 PM EST [facility] Blood Venous blood specimen / Unknown Venipuncture / Unknown 02/19/2024 11:05 AM EST 02/19/2024 12:31 PM EST us Adelia Alexandre MD LAB BLOOD ORDERABLES Final Res ult Performing Organization Address [facility]/ZIP Co de Phone Number [facility] [address] [place] [address], [place] [phone] * (ABNORMAL) Ferritin (02/19/2024 11:05 AM EST) Ferritin 684(H) 26 - 388 ng/mL LAB CHEMISTRY METHOD 02/19/2024 2:12 PM EST [facility] Blood Venous blood specimen / Unknown Venipuncture / Unknown 02/19/2024 11:05 AM EST 02/19/2024 12:31 PM EST us Adelia Alexandre MD LAB BLOOD ORDERABLES Final Res ult [facility] [address] [place] [address], * Lipid panel (10/10/2022) LDL/HDL Ratio 2 0 - 4 Triglycerides 77 0 - 150 mg/dL Cholesterol 171 0 - 200 mg/dL HDL 78 >=40 mg/dL LDL Cholesterol 78 0 - 100 mg/dL Blood Venous blood specimen / Unknown Historical Provider LAB BLOOD ORDERABLES Chloe l Result from Last 3 Months or Most Recently Relevant to Health Maintenance Insurance [facility] [employer] Care Teams Medical Driver Relationship Specialty Start Date End Date Nola Loja MD [address] [place] [phone] PCP - General Internal Medicine 02/19/24
== END 2024-04-22 10:49 | disposition home or self-care (01) ==
LOC: HO.BBR 10:48
PROVIDERS: PCP Family Medicine; Visit Provider Internal Medicine Gastroenterology
DX: Z13.89 Encounter for screening for other disorder (principal)

== ENCOUNTER 2024-05-13 11:06 | Outpatient (REF) | payer OTHER, SELFPAY ==
--- OUTSIDE RECORDS SUMMARY | 2024-05-13 12:47 | XMS_ITS | Clinical Summary ---
Author Organization [facility] [address] [facility] Address [address] [place] [address] Phone Care Team Providers Care Dehairing Machine Tender Name Role Phone Nola Loja MD Primary [...] (01/15/2024): 12/17 Lower lumbar will refer to [facility] for further evaluation 12/17 Seen by Arias no further evaluation needed Reassured mom this is normal varient Adolescent idiopathic scoliosis of thoracolumbar region 11/18/2017 Overview (01/15/2024): 12/17 Minimal at [facility] Recommend posture and hamstring stretching Short [...] Description 04/05/2024 Telephone Gastroenterology - [address] [place] [phone] Macrina Oliver MA 03/03/2024 Telephone Gastroenterology - [address] [place] [address] [address] Macrina Oliver MA 02/19/2024 11:00 AM EST Lab Draw Station - [address] [place] [phone] Hereditary hemochromatosis (CMS/HCC) 02/19/2024 10:45 AM EST Office Visit Gastroenterology - [facility] [address] [phone] Adelia Alexandre MD Hereditary hemochromatosis (CMS/HCC) (Primary Dx) 02/19/2024 Telephone Gastroenterology - [address] [address] Macrina Oliver MA 02/19/2024 Telephone Gastroenterology - [address] [place] [address] [address] Macrina Oliver MA from Last 3 Months Immunizations Name Administration Dates Next Due DTaP (Infanrix) 6wks to less than 7yo ,04/06/2006,07/04/2003,10/21,2002,2002 [id number] (Pentacel) 2mo to less than 5yo 09/15/2006,08/11/2006,07/04/2003,10/21,2002,2002 [...] Date/Time Associated Diagnosis Comments EXTERNAL CLINICAL LAB 04/25/2024 EXTERNAL CLINICAL LAB 04/05/2024 EXTERNAL CLINICAL LAB [...] Health Maintenance Results * External clinical lab (04/25/2024) Only the most recent of4 resultswithin the time period is included. Provider [facility] LAB BLOOD ORDERABLES Fin al Result * CBC auto differential (02/19/2024 11:05 AM EST) [facility] Signature WBC 5.6 4.8 - 10.8 K/mcL LAB HEMETOLOGY METHOD 02/19/2024 12:57 PM [facility] RBC 4.90 4.50 - 5.50 M/mcL LAB HEMETOLOGY METHOD 02/19/2024 12:57 PM [facility] Hemoglobin 15.3 13.5 - 17.5 g/dL LAB HEMETOLOGY METHOD 02/19/2024 12:57 PM [facility] Hematocrit 45.4 42.0 - 54.0 % LAB HEMETOLOGY METHOD 02/19/2024 12:57 PM [facility] MCV 93.4 79.0 - 98.0 FL LAB HEMETOLOGY METHOD 02/19/2024 12:57 PM [facility] MCH 31.5 27.0 - 32.0 pcg LAB HEMETOLOGY METHOD 02/19/2024 12:57 PM [facility] MCHC 33.7 32.0 - 37.0 g/dL LAB HEMETOLOGY METHOD 02/19/2024 12:57 PM [facility] RDW 12.0 11.0 - 15.0 % LAB HEMETOLOGY METHOD 02/19/2024 12:57 PM [facility] Platelets 343 130 - 400 K/mcL LAB HEMETOLOGY METHOD 02/19/2024 12:57 PM [facility] MPV 9.1 7.0 - 11.0 FL LAB HEMETOLOGY METHOD 02/19/2024 12:57 PM [facility] NRBC 0.0 <1.0 % LAB HEMETOLOGY METHOD 02/19/2024 12:57 PM [facility] NRBC Absolute 0.00 <0.10 K/mcL LAB HEMETOLOGY METHOD 02/19/2024 12:57 PM [facility] Neutrophils Relative 54.7 % LAB HEMETOLOGY METHOD 02/19/2024 12:57 PM [facility] Lymphocytes Relative 32.1 % LAB HEMETOLOGY METHOD 02/19/2024 12:57 PM [facility] Monocytes Relative 8.1 % LAB HEMETOLOGY METHOD 02/19/2024 12:57 PM [facility] Eosinophils Relative 3.8 % LAB HEMETOLOGY METHOD 02/19/2024 12:57 PM [facility] Basophils Relative 1.1 % LAB HEMETOLOGY METHOD 02/19/2024 12:57 PM [facility] Immature Granulocytes Relative 0.2 % LAB HEMETOLOGY METHOD 02/19/2024 12:57 PM [facility] Neutrophils Absolute 3.04 1.50 - 7.00 K/mcL LAB HEMETOLOGY METHOD 02/19/2024 12:57 PM [facility] Lymphocytes Absolute 1.78 1.00 - 5.00 K/mcL LAB HEMETOLOGY METHOD 02/19/2024 12:57 PM [facility] Monocytes Absolute 0.45 0.20 - 1.00 K/mcL LAB HEMETOLOGY METHOD 02/19/2024 12:57 PM [facility] Eosinophils Absolute 0.21 0.00 - 0.50 K/mcL LAB HEMETOLOGY METHOD 02/19/2024 12:57 PM [facility] Basophils Absolute 0.06 0.00 - 0.20 K/mcL LAB HEMETOLOGY METHOD 02/19/2024 12:57 PM [facility] Immature Granulocytes Absolute 0.01 0.00 - 0.03 K/mcL LAB HEMETOLOGY METHOD 02/19/2024 12:57 PM EST [facility] Blood Venous blood specimen / Unknown Venipuncture / Unknown 02/19/2024 11:05 AM EST 02/19/2024 12:31 PM EST us Adelia Alexandre MD LAB BLOOD ORDERABLES Final Res ult Performing Organization Address [facility] Co de Phone Number [facility] [address] [place] [address], [place] [phone] * (ABNORMAL) Iron and TIBC (02/19/2024 11:05 AM EST) Iron 225(H) 50 - 160 mcg/dL LAB CHEMISTRY METHOD 02/19/2024 2:12 PM EST [facility] TIBC 240(L) 250 - 450 mcg/dL LAB CHEMISTRY METHOD 02/19/2024 2:12 PM EST [facility] Iron Saturation 94(H) 20 - 50 % LAB CHEMISTRY METHOD 02/19/2024 2:12 PM EST [facility] Blood Venous blood specimen / Unknown Venipuncture / Unknown 02/19/2024 11:05 AM EST 02/19/2024 12:31 PM EST us Adelia Alexandre MD LAB BLOOD ORDERABLES Final Res ult Performing Organization Address [facility]/ZIP Co de Phone Number [facility] [address] [place] [address], [place] [phone] * (ABNORMAL) Ferritin (02/19/2024 11:05 AM EST) Ferritin 684(H) 26 - 388 ng/mL LAB CHEMISTRY METHOD 02/19/2024 2:12 PM EST [facility] Blood Venous blood specimen / Unknown Venipuncture / Unknown 02/19/2024 11:05 AM EST 02/19/2024 12:31 PM EST us Adelia Alexandre MD LAB BLOOD ORDERABLES Final Res ult [facility] [address] [place] [address], * Lipid panel (10/10/2022) LDL/HDL Ratio 2 0 - 4 Triglycerides 77 0 - 150 mg/dL Cholesterol 171 0 - 200 mg/dL HDL 78 >=40 mg/dL LDL Cholesterol 78 0 - 100 mg/dL Blood Venous blood specimen / Unknown Historical Provider LAB BLOOD ORDERABLES Chloe l Result from Last 3 Months or Most Recently Relevant to Health Maintenance Insurance [facility] PLAN Care Teams Dehairing Machine Tender Relationship Specialty Start Date End Date Nola Loja MD [address] [place] [phone] PCP - General Internal Medicine 02/19/24
== END 2024-05-13 11:07 | disposition home or self-care (01) ==
LOC: HO.BBR 11:06
PROVIDERS: PCP Family Medicine; Visit Provider Internal Medicine Gastroenterology
DX: Z13.89 Encounter for screening for other disorder (principal)

== ENCOUNTER 2024-06-17 10:58 | Outpatient (REF) | payer OTHER, SELFPAY ==
--- OUTSIDE RECORDS SUMMARY | 2024-06-17 12:02 | XMS_ITS | Encounter Summary ---
Author Organization [facility] Address [address] [place] [address] Care Team Providers Care Home Health Speech Therapist Name Role Phone Avani Johnson NP Primary Care Provider [phone] Nola Loja MD Primary Care Provider + Encounter Details Date Type Department Care Team Description 04/10/2021 Release of Information Medical Records [address] [place] [phone] Abstract, Provider Social History Tobacco Use Types [...] on filedocumented in this encounter Care Teams Home Health Speech Therapist Relationship Specialty Start Date End Date Avani Johnson NP [address] [place] [phone] PCP - General Pediatrics 12/23/19 06/12/22 Nola Loja MD [address] [place] [address] [phone] PCP - General Internal Medicine 06/13/22 documented as of this encounter
--- OUTSIDE RECORDS SUMMARY | 2024-06-17 12:02 | XMS_ITS | Encounter Summary ---
Author Organization [facility] Address [address] [place] [address] Care Team Providers Care Fire Protection Inspector Name Role Phone Avani Johnson NP Primary Care Provider [phone] Nola Loja MD Primary Care Provider + Reason for Visit * Reason Onset Date Comments Pedi 04/09/2021 Encounter Details Date Type Department Care Team Description 04/09/2021 Telephone Adult Medicine - [place] [address] [place] [address] Avani Johnson NP [address] [place] [phone] Pedi Social History Tobacco Use Types Packs/Day [...] to provider [place] p [phone] Prior Auth jose [facility] Prior Authorizations Ext [phone] Fax: [phone] [place] [phone] Prior Keren garcia * Telephone Encounter - [...] letter Formula script Insurance info Growth charts [facility] notes documented in this encounter Plan of Treatment Not on file documented as of this encounter Visit Diagnoses Not on filedocumented in this encounter Care Teams Fire Protection Inspector Relationship Specialty Start Date End Date Avani Johnson NP [address] [place] [phone] PCP - General Pediatrics 12/23/19 06/12/22 Nola Loja MD [address] [place] [phone] PCP - General Internal Medicine 06/13/22 documented as of this encounter
--- OUTSIDE RECORDS SUMMARY | 2024-06-17 12:02 | XMS_ITS | Encounter Summary ---
Author Organization [facility] Address [address] [place] [address] Care Team Providers Care Certified Hyperbaric Technician Name Role Phone Avani Johnson NP Primary Care Provider [phone] Nola Loja MD Primary Care Provider + Encounter Details Date Type Department Care Team Description 02/22/2020 Strategic Client Executive Report Medical Records [address] [place] [phone] Christopher Asher MD Social History Tobacco Use [...] on filedocumented in this encounter Care Teams Certified Hyperbaric Technician Relationship Specialty Start Date End Date Avani Johnson NP [address] [place] [phone] PCP - General Pediatrics 12/23/19 06/12/22 Nola Loja MD [address] [place] [address] [phone] PCP - General Internal Medicine 06/13/22 documented as of this encounter
--- OUTSIDE RECORDS SUMMARY | 2024-06-17 12:02 | XMS_ITS | Encounter Summary ---
Author Organization [facility] Address [address] [place] [address] Care Team Providers Care Brand Recorder Name Role Phone Eugenia Doe MD Primary Care Provider [facility] Avani Rosenberg NP Primary Care Provider [phone] Nola Loja MD Primary Care Provider + Encounter Details Date Type Department Care Team Description 09/22/2014 Md Psychiatry Report Medical Records [address] [place] [phone] Dionisio Puga Social History Tobacco Use Types [...] on filedocumented in this encounter Care Teams Brand Recorder Relationship Specialty Start Date End Date Eugenia Doe MD PCP - General Pediatrics 11/05/12 12/22/19 Avani Johnson NP [address] [place] [phone] PCP - General Pediatrics 12/23/19 06/12/22 Nola Loja MD [address] [place] [phone] PCP - General Internal Medicine 06/13/22 documented as of this encounter
--- OUTSIDE RECORDS SUMMARY | 2024-06-17 12:02 | XMS_ITS | Encounter Summary ---
Author Organization [facility] Address [address] [place] [address] Care Team Providers Care Genetic Technologist Name Role Phone Eugenia Doe MD Primary Care Provider [facility] Avani Rosenberg NP Primary Care Provider [phone] Nola Loja MD Primary Care Provider + Encounter Details Date Type Department Care Team Description 12/29/2016 Release of Information Medical Records [address] [place] [id number] Abstract, Provider Social History Tobacco Use Types [...] on filedocumented in this encounter Care Teams Genetic Technologist Relationship Specialty Start Date End Date Eugenia Doe MD PCP - General Pediatrics 11/05/12 12/22/19 Avani Johnson NP [address] [place] [phone] PCP - General Pediatrics 12/23/19 06/12/22 Nola Loja MD [address] [place] [phone] PCP - General Internal Medicine 06/13/22 documented as of this encounter
--- OUTSIDE RECORDS SUMMARY | 2024-06-17 12:03 | XMS_ITS | Encounter Summary ---
Author Organization [facility] Address [address] [place] [address] Care Team Providers Care Boss Dyer Name Role Phone Eugenia Doe MD Primary Care Provider [facility] Avani Rosenberg NP Primary Care Provider [phone] Nola Loja MD Primary Care Provider + Encounter Details Date Type Department Care Team Description 12/01/2018 Release of Information Medical Records [address] [place] [id number] Abstract, Provider Social History Tobacco Use Types [...] on filedocumented in this encounter Care Teams Boss Dyer Relationship Specialty Start Date End Date Eugenia Doe MD PCP - General Pediatrics 11/05/12 12/22/19 Avani Johnson NP [address] [place] [phone] PCP - General Pediatrics 12/23/19 06/12/22 Nola Loja MD [address] [place] [phone] PCP - General Internal Medicine 06/13/22 documented as of this encounter
--- OUTSIDE RECORDS SUMMARY | 2024-06-17 12:03 | XMS_ITS | Encounter Summary ---
Author Organization [facility] Address [address] [place] [address] Care Team Providers Care Contract Negotiation Specialist Name Role Phone Eugenia Doe MD Primary Care Provider [facility] Avani Rosenberg NP Primary Care Provider [phone] Nola Loja MD Primary Care Provider + Encounter Details Date Type Department Care Team Description 12/10/2017 Release of Information Medical Records [address] [place] [phone] Abstract, Provider Social History Tobacco Use Types [...] on filedocumented in this encounter Care Teams Contract Negotiation Specialist Relationship Specialty Start Date End Date Eugenia Doe MD PCP - General Pediatrics 11/05/12 12/22/19 Avani Johnson NP [address] [place] [phone] PCP - General Pediatrics 12/23/19 06/12/22 Nola Loja MD [address] [place] [phone] PCP - General Internal Medicine 06/13/22 documented as of this encounter
--- OUTSIDE RECORDS SUMMARY | 2024-06-17 12:03 | XMS_ITS | Clinical Summary ---
Author Organization [facility] [address] [facility] Address [address] [place] [address] Phone Care Team Providers Care Civil Engineering Specialist Name Role Phone Nola Loja MD Primary Care Pr ovider Allergies Active Allergy Reactions Criticality Noted Date Comments Other 04/08/2021 Medications triamcinolone (KENALOG) 0.025 % ointment 4 Active doxycycline (VIBRAMYCIN) 100 mg capsule Take 1 capsule (100 mg total) by mouth 2 (two) times a day for 10 days. Take with at least 8 ounces (large glass) of water, do not lie down for 30 minutes after. Administer 2 hours before or after multivitamins, antacids, or other products containing polyvalent cations (i.e., calcium, iron, magnesium, selenium, zinc). 20 each 5 06/04/19 25 Active Problems Problem Noted Date Diagnosed Date [...] (01/15/2024): 12/17 Lower lumbar will refer to [facility] for further evaluation 12/17 Seen by Arias no further evaluation needed Reassured mom this is normal varient Adolescent idiopathic scoliosis of thoracolumbar region 11/18/2017 Overview (01/15/2024): 12/17 Minimal at [facility] Recommend posture and hamstring stretching Short [...] Encounters Date Type Department Care Team Description 05/24/2024 10:15 AM EDT Office Visit Adult Medicine [address] [phone] Britney Last MD Rash (Primary Dx) 05/23/2024 Nurse Triage Adult Medicine [address] [phone] Nola Loja MD Allergic Reaction; Rash 04/05/2024 Telephone Gastroenterology - [address] [place] [phone] Macrina Oliver MA from Last 3 Months Immunizations Name Administration Dates Next Due DTaP (Infanrix) 6wks to less than 7yo ,04/06/2006,07/04/2003,10/21,2002,2002 [id number] (Pentacel) 2mo to less than 5yo 09/15/2006,08/11/2006,07/04/2003,10/21,2002,2002 HPV, Quadrivalent 06/16/2014,12/02/2013,10/01/19 14 Hepatitis B Pediatric (Enger ix B; Recombivax HB) to less than 20 yo 08/11/2006,01/23/2003,2002,04/02 IPV Inactivated polio (Ipol) 6wks and older 08/11/2006,04/26/2006,01/23/2003,08/15,2002 Influenza trivalent, 0.5mL, preservative free (Fluarix; FluLaval; Fluzone) ages 6mo and older (Afluria) 3 years and older 01/25/2020,11/18/2017,11/17/2016,12/05 Influenza trivalent, MDCK, 0 .5mL, preservative free (Flucelvax) 6mo and older 05/24/2024 Influenza trivalent, with pr eservative (Fluzone; Afluria) [...] History Medical History Date Comments Development delay Allergic rhinitis Speech delay DX:Speech delay; COMMENT: has Speech Therapy Reactive airway disease Asperger syndrome ADHD (attention deficit hype ractivity disorder) Learning disorder 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 Family History Medical History Relation Name Comments Thyroid disease Mother Allergies Other 1 Both Sides Asthma Other 2 Paternal Side Relation Name Status Comments Mother Other 1 Other 2 Social History Tobacco Use Types Packs/Day Years Used Date Smoking Tobacco: Never Smokeless Tobacco: Never Tobacco Cessation:Counseling Given: Not Answered Alcohol Use Standard Drinks/Week Comments Not Currently 0 (1 standard drink = 0.6 oz pur e alcohol) Sex and Gender Information Value Date Recorded Sex Assigned at Not on file Legal Sex Male 9:56 PM EST Gender Identity Not on file Sexual Orientation Not on file Obstetrics History Last Filed Vital Signs Vital Sign Reading Time Taken Comments Blood Pressure 112/60 05/24/2024 10:09 AM EDT Pulse 103 05/24/2024 10:09 AM EDT Temperature 36.7 ??C (98.1 ??F) 05/24/2024 10:09 AM E DT Respiratory Rate 14 05/24/2024 10:09 AM EDT Oxygen Saturation 98% 05/24/2024 10:09 AM EDT Inhaled Oxygen Concentration - - Weight 56.7 kg (125 lb) 05/24/2024 10:09 AM EDT Height 174 cm (5' 8.5 ) 05/24/2024 10:09 AM EDT Body Mass Index 18.73 05/24/2024 10:09 AM EDT Plan of Treatment Health Maintenance Due Date Last Done Comments Pneumococcal Vaccine: Pediatrics (0 to 5 Years) and At-Risk Patients (6 to 64 Years) (1 of 1 - PPSV23) 2008 2004, 2002, 2002, Additional history exists Meningococcal B Vaccine (1 of 2 - Standard) 2018 Depression Screening 02/01/2022 HIV Screening 02/01/2022 Hepatitis C Screening 02/01/2022 Social Influencers of Health Screening 02/01/2022 DTaP,Tdap,and Td Vaccines (7 - Td or Tdap) 10/01/2023 09/30/2013, 09/15/2006, 08/11/2006, Additional history exists COVID-19 Vaccine ( - season) 2023 09/14/2020, 08/17/2020 Cholesterol Screening (Lipid Panel) 10/11/2027 10/10/2022 Hepatitis B Vaccines Completed 08/11/2006, 01/23/2003, 2002, Additional history exists HIB Vaccines Completed 09/15/2006, 08/30, 08/11/2006, Additional history exists IPV Vaccines Completed 09/15/2006, 07/31, 08/11/2006, Additional history exists MMR Vaccines Completed 09/15/2006, 06/2006, 04/05/2003 Varicella Vaccines Completed 09/15/2006, 04/06/2006 HPV Vaccines Completed 06/16/2014, 04/2013, 09/30/2013 Meningococcal ACWY Vaccine Completed 11/18/2018, Influenza Vaccine Completed 05/24/2024, , 11/18/2017, Additional history exists Hepatitis A Vaccines Aged Out No long er eligible based on patient's age to complete this topic RSV Immunization Patients Under 20 months Aged Out No longer eligible based on patient's age to complete this topic Procedures Procedure Name Priority Date/Time Associated Diagnosis Comments EXTERNAL CLINICAL LAB 04/25/2024 EXTERNAL CLINICAL LAB 04/05/2024 EXTERNAL CLINICAL LAB 03/22/2024 LIPID PANEL Routine 10/10/2022 from Last 3 Months or Most Recently Relevant to Health Maintenance Results * External clinical lab (04/25/2024) Only the most recent of3 resultswithin the time period is included. us Provider [facility] LAB BLOOD ORDERABLES Fin al Result * Lipid panel (10/10/2022) LDL/HDL Ratio 2 0 - 4 Triglycerides 77 0 - 150 mg/dL Cholesterol 171 0 - 200 mg/dL HDL 78 >=40 mg/dL LDL Cholesterol 78 0 - 100 mg/dL Blood Venous blood specimen / Unknown [facility] [place] Provider LAB BLOOD ORDERABLES Chloe l Result from Last 3 Months or Most Recently Relevant to Health Maintenance Insurance [facility] [place] [place] [id number] Care Teams Civil Engineering Specialist Relationship Specialty Start Date End Date Nola Loja MD [address] [place] [address] [phone] PCP - General Internal Medicine 02/19/24
--- OUTSIDE RECORDS SUMMARY | 2024-06-17 12:03 | XMS_ITS | Encounter Summary ---
Author Organization [facility] Address [address] [place] [address] Care Team Providers Care Lead Material Handler Name Role Phone Eugenia Doe MD Primary Care Provider [facility] Avani Rosenberg NP Primary Care Provider [phone] Nola Loja MD Primary Care Provider + Encounter Details Date Type Department Care Team Description 09/06/2019 Field Artillery Operations Man Report Medical Records [address] [place] [phone] Dionisio Puga Social History Tobacco Use Types [...] on filedocumented in this encounter Care Teams Lead Material Handler Relationship Specialty Start Date End Date Eugenia Doe MD PCP - General Pediatrics 11/05/12 12/22/19 Avani Johnson NP [address] [place] [address] 05019 PCP - General Pediatrics 12/23/19 06/12/22 Nola Loja MD [address] [place] [phone] PCP - General Internal Medicine 06/13/22 documented as of this encounter
[2024-06-17 12:29] LABS: Ferritin 471 ng/mL (20-250)
== END 2024-06-17 10:59 | disposition home or self-care (01) ==
LOC: HO.BBR 10:58
PROVIDERS: PCP Family Medicine; Visit Provider Internal Medicine Gastroenterology
DX: E83.110 Hereditary hemochromatosis (principal)
CPT/HCPCS: 36415; 82728

== ENCOUNTER 2024-07-01 12:51 | Outpatient (REF) | payer OTHER, SELFPAY ==
--- OUTSIDE RECORDS SUMMARY | 2024-07-01 13:15 | XMS_ITS | Encounter Summary ---
Author Organization [facility] Address [address] [place] [address] Care Team Providers Care Respiratory Supervisor Name Role Phone Eugenia Doe MD Primary Care Provider [facility] Avani Rosenberg NP Primary Care Provider [phone] Nola Loja MD Primary Care Provider + Encounter Details Date Type Department Care Team Description 12/22/2018 Louver Mortiser Operator Report Medical Records [address] [place] [address] Dionisio Puga Social History Tobacco Use Types [...] on filedocumented in this encounter Care Teams Respiratory Supervisor Relationship Specialty Start Date End Date Eugenia Doe MD PCP - General Pediatrics 11/05/12 12/22/19 Avani Johnson NP [address] [place] [address] PCP - General Pediatrics 12/23/19 06/12/22 Nola Loja MD [address] [place] [address] [phone] PCP - General Internal Medicine 06/13/22 documented as of this encounter
--- OUTSIDE RECORDS SUMMARY | 2024-07-01 13:15 | XMS_ITS | Encounter Summary ---
Author Organization [facility] Address [address] [place] [address] Care Team Providers Care Investigative Reporter Name Role Phone Avani Johnson NP Primary Care Provider [phone] Nola Loja MD Primary Care Provider + Encounter Details Date Type Department Care Team Description 04/10/2021 Release of Information Medical Records [address] [place] [phone] Abstract, Provider Social History Tobacco Use Types [...] on filedocumented in this encounter Care Teams Investigative Reporter Relationship Specialty Start Date End Date Avani Johnson NP [address] [place] [phone] PCP - General Pediatrics 12/23/19 06/12/22 Nola Loja MD [address] [place] [address] [phone] PCP - General Internal Medicine 06/13/22 documented as of this encounter
--- OUTSIDE RECORDS SUMMARY | 2024-07-01 13:15 | XMS_ITS | Encounter Summary ---
Author Organization [facility] Address [address] [place] [address] Care Team Providers Care Tailercpa Name Role Phone Eugenia Doe MD Primary Care Provider [facility] Avani Rosenberg NP Primary Care Provider [phone] Nola Loja MD Primary Care Provider + Encounter Details Date Type Department Care Team Description 12/10/2017 Release of Information Medical Records [address] [place] [id number] Abstract, Provider Social History Tobacco Use Types [...] on filedocumented in this encounter Care Teams Tailercpa Relationship Specialty Start Date End Date Eugenia Doe MD PCP - General Pediatrics 11/05/12 12/22/19 Avani Johnson NP [address] [place] [address] [phone] PCP - General Pediatrics 12/23/19 06/12/22 Nola Loja MD [address] [place] [address] [phone] PCP - General Internal Medicine 06/13/22 documented as of this encounter
--- OUTSIDE RECORDS SUMMARY | 2024-07-01 13:15 | XMS_ITS | Encounter Summary ---
Author Organization [facility] Address [address] [place] [address] Care Team Providers Care Rental Counter Clerk Name Role Phone Eugenia Doe MD Primary Care Provider [facility] Avani Rosenberg NP Primary Care Provider [phone] Nola Loja MD Primary Care Provider + Encounter Details Date Type Department Care Team Description 09/22/2014 Caul Dresser Report Medical Records [address] [place] [id number] Dionisio Puga Social History Tobacco Use Types [...] on filedocumented in this encounter Care Teams Rental Counter Clerk Relationship Specialty Start Date End Date Eugenia Doe MD PCP - General Pediatrics 11/05/12 12/22/19 Avani Johnson NP [address] [place] [address] [phone] PCP - General Pediatrics 12/23/19 06/12/22 Nola Loja MD [address] [place] [address] [phone] PCP - General Internal Medicine 06/13/22 documented as of this encounter
--- OUTSIDE RECORDS SUMMARY | 2024-07-01 13:15 | XMS_ITS | Clinical Summary ---
Author Organization [facility] Address [address] [place] [address] Care Team Providers Care Customer Service Administrator Name Role Phone Nola Loja MD Primary [...] Educational Resources Center for Disease Control (www.cdc.gov/ncbddd/adhd/) [place] [employer] Academy of Pediatrics (www.aap.org/healthtopics/adhd.cfm) National Resource Center for ADHD (www.qqhq8dcnj.org) Children and Adults with Attention Deficit Hyperactivity Disorder (www.christopher.org) [place] [facility] Access Project (www.mcpap.Help Scout) This care plan was created in collaboration with Jose Jo on 12/26/2014 Problem Noted Date Eczema 10/13/2023 Hepatic steatosis 10/24/2022 Underweight 01/25/2020 Overview: 02/18 Tele GI Cyproheptadine, Complete stool testing., FU 6 month Spina bifida occulta 11/30/2017 Overview: 12/17 Lower lumbar [place] [facility] [place] 12/17 Seen by Arias no further evaluation needed Reassured mom this is normal varient Short stature 11/18/2017 Adolescent idiopathic scoliosis of [facility] 11/18/2017 Overview: 12/17 [facility] [facility] Recommend posture and hamstring stretching Intraventricular conduction [...] Vaccine-quadrivale nt 4 Years Plus 11/18/2017 MMR (Etgshii-Zevyx-Wcpnspp) 09/15/2006, 4 MMRV (Lrgproh-Eyyqr-Yducawk-Varicella) 7 Meningococcal (Menactra) 11/18/2018,06/16/2014 Pneumococcal(Pedi) Conjugate PCV-7 [...] 04/06/2006, Additional history exists Covid-19 Vaccine (3 2022-2 4 season) 2023 09/14/2020, 08/17/2020 DEPRESSION SCREENING/FOLLOWUP 03/02/2024 (Completed), 04/08/2021, 01/25/2020, Additional history exists SOCIAL NEEDS SCREENING 03/02/2024 , 01/25/2020, 11/18/2018 INFLUENZA (Season Ended) 2024 020, 11/18/2017, 11/18/2017, Additional history exists BASELINE HEALTH EXAM 18-39 10/11/2027 10/10/2022, CHOLESTEROL SCREENING 10/11/2027 10/10/2022 PNEUMOCOCCAL VACCINE FOR HIG H RISK PATIENTS (#1) 2067 HUMAN PAPILLOMAVIRUS (HPV) Completed 06/16, 12/02/2013, 09/30/2013 Care Teams Customer Service Administrator Relationship Specialty Start Date End Date Nola Loja MD [address] [place] [phone] PCP - General Internal Medicine 06/13/22
--- OUTSIDE RECORDS SUMMARY | 2024-07-01 13:15 | XMS_ITS | Encounter Summary ---
Author Organization [facility] Address [address] [place] [address] Care Team Providers Care Tensioning Machine Operator Name Role Phone Avani Johnson NP Primary Care Provider [phone] Nola Loja MD Primary Care Provider + Reason for Visit * Reason Onset Date Comments Pedi 04/09/2021 Encounter Details Date Type Department Care Team Description 04/09/2021 Telephone Adult Medicine - [place] [address] [place] [address] Avani Johnson NP [address] [place] [phone] Pedi Social History Tobacco Use Types Packs/Day [...] [place] [phone] Prior Auth jose Longoria [facility] Prior Authorizations Ext [phone] Fax: [phone] [phone] Prior Keren garcia * Telephone Encounter - [...] letter Formula script Insurance info Growth charts [facility] notes documented in this encounter Plan of Treatment Not on file documented as of this encounter Visit Diagnoses Not on filedocumented in this encounter Care Teams Tensioning Machine Operator Relationship Specialty Start Date End Date Avani Johnson NP [address] [place] [phone] PCP - General Pediatrics 12/23/19 06/12/22 Nola Loja MD [address] [place] [address] PCP - General Internal Medicine 06/13/22 documented as of this encounter
--- OUTSIDE RECORDS SUMMARY | 2024-07-01 13:15 | XMS_ITS | Clinical Summary ---
Author Organization [facility] 299 [facility] Address [address] [place] [address] Phone Care Team Providers Care Call Circuit Worker Name Role Phone Nola Loja MD Primary [...] (01/15/2024): 12/17 Lower lumbar will refer to [facility] for further evaluation 12/17 Seen by Arias no further evaluation needed Reassured mom this is normal varient Adolescent idiopathic scoliosis of thoracolumbar region 11/18/2017 Overview (01/15/2024): 12/17 Minimal at [facility] Recommend posture and hamstring stretching Short stature [...] Encounters Date Type Department Care Team Description 06/20/2024 Telephone Gastroenterology - [address] [address] Macrina Oliver MA 05/24/2024 10:15 AM EDT Office Visit Adult Medicine [address] [phone] Britney Last MD Rash (Primary Dx) 05/23/2024 Nurse Triage Adult Medicine [address] [phone] Nola Loja MD Allergic Reaction; Rash 04/05/2024 Telephone Gastroenterology - [address] [address] Macrina Oliver MA from Last 3 Months Immunizations Name Administration Dates Next Due DTaP (Infanrix) 6wks to less than 7yo ,04/06/2006,07/04/2003,10/21,2002,2002 [id number] (Pentacel) 2mo to less than 5yo 09/15/2006,08/11/2006,07/04/2003,10/21,2002,2002 [...] 08/11/2006, Additional history exists COVID-19 Vaccine ( season) 2023 09/14/2020, 08/17/2020 Cholesterol Screening (Lipid [...] Date/Time Associated Diagnosis Comments EXTERNAL CLINICAL LAB 06/20/2024 EXTERNAL CLINICAL LAB 04/25/2024 EXTERNAL CLINICAL LAB 04/05/2024 LIPID PANEL Routine 10/10/2022 from Last 3 Months or Most Recently Relevant to Health Maintenance Results * External clinical lab (06/20/2024) Only the most recent of3 resultswithin the time period is included. us Provider [facility] LAB BLOOD ORDERABLES Fin al Result * Lipid panel (10/10/2022) LDL/HDL Ratio 2 0 - 4 Triglycerides 77 0 - 150 mg/dL Cholesterol 171 0 - 200 mg/dL HDL 78 >=40 mg/dL LDL Cholesterol 78 0 - 100 mg/dL Blood Venous blood specimen / Unknown us Historical Provider LAB BLOOD ORDERABLES Chloe l Result from Last 3 Months or Most Recently Relevant to Health Maintenance Insurance [facility] [place] [address] Care Teams Call Circuit Worker Relationship Specialty Start Date End Date Nola Loja MD [address] [place] [address] [phone] PCP - General Internal Medicine 02/19/24
== END 2024-07-01 12:52 | disposition home or self-care (01) ==
LOC: HO.BBR 12:51
PROVIDERS: Visit Provider Internal Medicine Gastroenterology
DX: Z13.89 Encounter for screening for other disorder (principal)

== ENCOUNTER 2024-07-15 11:11 | Outpatient (REF) | payer OTHER, SELFPAY ==
--- OUTSIDE RECORDS SUMMARY | 2024-07-15 11:38 | XMS_ITS | Clinical Summary ---
Author Organization [facility] 299 [facility] Address [address] [place] [address] Phone Care Team Providers Care Body Care Manager Name Role Phone Nola Loja MD Primary Care Pr ovider Allergies Active Allergy Reactions Criticality Noted Date Comments Other 04/08/2021 Medications triamcinolone (KENALOG) 0.025 % ointment 10/13/2023 Active Active Problems Problem Noted Date [...] region 11/18/2017 Overview (01/15/2024): 12/17 Minimal at [facility] Recommend posture and hamstring stretching Short stature [...] [address] [place] [address] Macrina Oliver MA 05/24/2024 10:15 AM EDT Office Visit Adult Medicine [address] [phone] Britney Last MD Rash (Primary Dx) 05/23/2024 Nurse Triage Adult Medicine [address] [phone] Nola Loja MD Allergic Reaction; Rash from Last 3 Months Immunizations Name Administration Dates Next Due DTaP (Infanrix) 6wks to less than 7yo ,04/06/2006,07/04/2003,10/21,2002,2002 [id number] (Pentacel) 2mo to less than 5yo 09/15/2006,08/11/2006,07/04/2003,10/21,2002,2002 [...] CLINICAL LAB 06/20/2024 EXTERNAL CLINICAL LAB 04/25/2024 LIPID PANEL Routine 10/10/2022 from Last 3 Months or Most Recently Relevant to Health Maintenance Results * External clinical lab (06/20/2024) Only the most recent of2 resultswithin the time period is included. us Provider [facility] LAB BLOOD ORDERABLES Fin al Result * Lipid panel (10/10/2022) LDL/HDL Ratio 2 0 - 4 Triglycerides 77 0 - 150 mg/dL Cholesterol 171 0 - 200 mg/dL HDL 78 >=40 mg/dL LDL Cholesterol 78 0 - 100 mg/dL Blood Venous blood specimen / Unknown [facility] Provider LAB BLOOD ORDERABLES Chloe l Result from Last 3 Months or Most Recently Relevant to Health Maintenance Insurance [employer] [id number] [facility] [employer] [facility] Care Teams Body Care Manager Relationship Specialty Start Date End Date Nola Loja MD [address] [place] [phone] PCP - General Internal Medicine 02/19/24
== END 2024-07-15 11:12 | disposition home or self-care (01) ==
LOC: HO.BBR 11:11
PROVIDERS: PCP Family Medicine; Visit Provider Internal Medicine Gastroenterology
DX: Z13.89 Encounter for screening for other disorder (principal)

== ENCOUNTER 2024-08-05 10:57 | Outpatient (REF) | payer OTHER, SELFPAY ==
--- OUTSIDE RECORDS SUMMARY | 2024-08-05 11:50 | XMS_ITS | Clinical Summary ---
Author Organization [facility] 299 [facility] Address [address] [place] [address] Phone Care Team Providers Care Dental Ceramist Assistant Name Role Phone Nola Loja MD Primary [...] 11/18/2017 Overview (01/15/2024): 12/17 Minimal at [facility] Recommend posture and hamstring stretching Short [...] [address] [place] [address] Macrina Oliver MA 05/24/2024 10:15 AM EDT Office Visit Adult Medicine [address] [phone] Britney Last MD Rash (Primary Dx) 05/23/2024 Nurse Triage Adult Medicine [address] [phone] Nola Loja MD Allergic Reaction; Rash from Last 3 Months Immunizations Name Administration Dates Next Due DTaP (Infanrix) 6wks to less than 7yo ,04/06/2006,07/04/2003,10/21,2002,2002 [id number] (Pentacel) 2mo to less than 5yo 09/15/2006,08/11/2006,07/04/2003,10/21,2002,2002 [...] Date/Time Associated Diagnosis Comments EXTERNAL CLINICAL LAB 07/15/2024 EXTERNAL CLINICAL LAB 06/20/2024 LIPID PANEL Routine 10/10/2022 from Last 3 Months or Most Recently Relevant to Health Maintenance Results * External clinical lab (07/15/2024) Only the most recent of2 resultswithin the time period is included. us Provider [facility] BLOOD ORDERABLES Fin al Result * Lipid panel (10/10/2022) LDL/HDL Ratio 2 0 - 4 Triglycerides 77 0 - 150 mg/dL Cholesterol 171 0 - 200 mg/dL HDL 78 >=40 mg/dL LDL Cholesterol 78 0 - 100 mg/dL Blood Venous blood specimen / Unknown [facility] Provider LAB BLOOD ORDERABLES Chloe l Result from Last 3 Months or Most Recently Relevant to Health Maintenance Insurance [employer] [id number] [facility] PL[facility] Care Teams Dental Ceramist Assistant Relationship Specialty Start Date End Date Nola Loja MD [address] [place] [phone] PCP - General Internal Medicine 02/19/24
== END 2024-08-05 10:58 | disposition home or self-care (01) ==
LOC: HO.BBR 10:57
PROVIDERS: PCP Family Medicine; Visit Provider Internal Medicine Gastroenterology
DX: Z13.89 Encounter for screening for other disorder (principal)

== ENCOUNTER 2024-08-19 11:04 | Outpatient (REF) | payer OTHER, SELFPAY ==
--- OUTSIDE RECORDS SUMMARY | 2024-08-19 11:30 | XMS_ITS | Encounter Summary ---
Author Organization [facility] Address [address] [place] [address] Care Team Providers Care Telescope Repairer Name Role Phone Nola Loja MD Primary Care Pr ovider Encounter Details Date Type Department Care Team (Late st Contact Info) Description 08/18/2024 Telephone Gastroenterology - [address] [place] [address] Macrina Oliver MA Social History Tobacco Use [...] Progress Notes * Macrina Oliver MA - 08/18/2024 8:35 AM EDT SPOKE WITH PT PER DR KRUSE. PT STATES HE IS DOING WEEKLY PHLEBOTOMY. OK PER DR KRUSE TO SKIP ONE WEEK. documented in this encounter Plan of Treatment Not on file documented as of this encounter Visit Diagnoses Not on filedocumented in this encounter Care Teams Telescope Repairer Relationship Specialty Start Date End Date Nola Loja MD [address] [place] [phone] PCP - General Internal Medicine 02/19/24 documented as of this encounter
[2024-08-19 12:46] LABS: Ferritin 49 ng/mL (20-250)
== END 2024-08-19 11:05 | disposition home or self-care (01) ==
LOC: HO.BBR 11:04
PROVIDERS: PCP Family Medicine; Visit Provider Internal Medicine Gastroenterology
DX: E83.110 Hereditary hemochromatosis (principal)
CPT/HCPCS: 36415; 82728

== ENCOUNTER 2024-09-07 11:04 | Outpatient (REF) | payer OTHER, SELFPAY ==
--- OUTSIDE RECORDS SUMMARY | 2024-09-07 12:21 | XMS_ITS | Clinical Summary ---
Author Organization [facility] [address] [facility] Address [address] [place] [address] Phone Care Team Providers Care Pharmacology Associate Name Role Phone Nola Loja MD Primary [...] region 11/18/2017 Overview (01/15/2024): 12/17 Minimal at [facility] Recommend posture and hamstring stretching Short stature [...] Encounters Date Type Department Care Team Description 08/24/2024 Telephone Gastroenterology - [address] [facility] [address] [address] Macrina Oliver MA 08/18/2024 Telephone Gastroenterology - [address] [place] [phone] Macrina Oliver MA 06/20/2024 Telephone Gastroenterology - [address] [facility] [address] [address] Macrina Oliver MA from Last 3 Months Immunizations Name Administration Dates Next Due DTaP (Infanrix) 6wks to less than 7yo ,04/06/2006,07/04/2003,10/21,2002,2002 [id number] (Pentacel) 2mo to less than 5yo 09/15/2006,08/11/2006,07/04/2003,10/21,2002,2002 [...] 103 05/24/2024 10:09 AM EDT Temperature 36.7 C (98.1 F) 05/24/2024 10:09 AM EDT Respiratory Rate 14 05/24/2024 10:09 AM EDT [...] 5 Years) and At-Risk Patients (6 to 49 Years) (1 of 1 - PPSV23) 2008 2004, 2002, 2002, Additional history exists Meningococcal B Vaccine (1 of 2 - Standard) 2018 Depression Screening 02/01/2022 HIV Screening 02/01/2022 Hepatitis C Screening 02/01/2022 Social Influencers of Health Screening 02/01/2022 DTaP,Tdap,and Td Vaccines (7 - Td or Tdap) 10/01/2023 09/30/2013, 09/15/2006, 08/11/2006, Additional history exists COVID-19 Vaccine ( season) 2023 09/14/2020, 08/17/2020 Influenza Vaccine (#1) 2024 , 01/25/2020, 11/18/2017, Additional history exists Cholesterol Screening (Lipid Panel) [...] Date/Time Associated Diagnosis Comments EXTERNAL CLINICAL LAB 08/22/2024 EXTERNAL CLINICAL LAB 07/15/2024 EXTERNAL CLINICAL LAB 06/20/2024 LIPID PANEL Routine 10/10/2022 from Last 3 Months or Most Recently Relevant to Health Maintenance Results * External clinical lab (08/22/2024) Only the most recent of3 resultswithin the time period is included. us Provider [facility] LAB BLOOD ORDERABLES Fin al Result * Lipid panel (10/10/2022) LDL/HDL Ratio 2 0 - 4 Triglycerides 77 0 - 150 mg/dL Cholesterol 171 0 - 200 mg/dL HDL 78 >=40 mg/dL LDL Cholesterol 78 0 - 100 mg/dL Blood Venous blood specimen / Unknown [facility] Provider LAB BLOOD ORDERABLES Chloe l Result from Last 3 Months or Most Recently Relevant to Health Maintenance Insurance A[employer] [id number] [facility] HE[employer] PLAN Care Teams Pharmacology Associate Relationship Specialty Start Date End Date Nola Loja MD [address] [place] [phone] PCP - General Internal Medicine 02/19/24
--- OUTSIDE RECORDS SUMMARY | 2024-09-07 12:21 | XMS_ITS | Encounter Summary ---
Author Organization [facility] Address [address] [place] [address] Care Team Providers Care Stile Ripsaw Operator Name Role Phone Avani Johnson NP Primary Care Provider [phone] Nola Loja MD Primary Care Provider + Encounter Details Date Type Department Care Team Description 02/22/2020 Topper Press Operator Automatic Report Medical Records [address] [place] [phone] Christopher Asher MD Social History Tobacco Use [...] on filedocumented in this encounter Care Teams Stile Ripsaw Operator Relationship Specialty Start Date End Date Avani Johnson NP [address] [place] [phone] PCP - General Pediatrics 12/23/19 06/12/22 Nola Loja MD [address] [place] [address] [phone] PCP - General Internal Medicine 06/13/22 documented as of this encounter
== END 2024-09-07 11:05 | disposition home or self-care (01) ==
LOC: HO.BBR 11:04
PROVIDERS: PCP Family Medicine; Visit Provider Internal Medicine Gastroenterology
DX: Z13.89 Encounter for screening for other disorder (principal)

== ENCOUNTER 2024-10-21 10:59 | Outpatient (REF) | payer OTHER, SELFPAY ==
--- OUTSIDE RECORDS SUMMARY | 2024-10-21 11:05 | XMS_ITS | Clinical Summary ---
Author Organization [facility] 299 [facility] Address [address] [place] [address] Phone Care Team Providers Care Loom Changer Name Role Phone Nola Loja MD Primary [...] region 11/18/2017 Overview (01/15/2024): 12/17 Minimal at [facility] Recommend posture and hamstring stretching Short [...] Team Description 08/24/2024 Telephone Gastroenterology - [address] [facility] [address] [place] [address] Macrina Oliver MA 08/18/2024 Telephone Gastroenterology - [address] [facility] [address] [place] [address] Macrina Oliver MA from Last 3 Months Immunizations Name Administration Dates Next Due DTaP (Infanrix) 6wks to less than 7yo ,04/06/2006,07/04/2003,10/21,2002,2002 [id number] (Pentacel) 2mo to less than 5yo 09/15/2006,08/11/2006,07/04/2003,10/21,2002,2002 [...] Vaccine (1 of 2 - Standard) 2018 HIV Screening 02/01/2022 Hepatitis C Screening 02/01/2022 Social Influencers of Health Screening 02/01/2022 DTaP,Tdap,and Td Vaccines (7 - Td or Tdap) 10/01/2023 09/30/2013, 09/15/2006, 08/11/2006, Additional history exists COVID-19 Vaccine (3 - season) 2023 09/14/2020, 08/17/2020 Depression Screening 03/02/2024 Influenza Vaccine (#1) 2024 , 01/25/2020, 11/18/2017, Additional history exists Cholesterol Screening (Lipid Panel) 10/11/2027 10/10/2022 Hepatitis B Vaccines Completed 08/11/2006, 01/23/2003, 2002, Additional history exists HIB Vaccines Completed 09/15/2006, 08/30, 08/11/2006, Additional history exists IPV Vaccines Completed 09/15/2006, 07/31, 08/11/2006, Additional history exists MMR Vaccines Completed 09/15/2006, 06/2006, 04/05/2003 Varicella Vaccines Completed 09/15/2006, 04/06/2006 HPV Vaccines Completed 06/16/2014, 10/0 04/2013, 09/30/2013 Meningococcal ACWY Vaccine Completed 11/18/2018, Hepatitis A Vaccines Aged Out No long er eligible based on patient's age to complete this topic RSV Immunization Patients Under 20 months Aged Out No longer eligible based on patient's age to complete this topic Procedures Procedure Name Priority Date/Time Associated Diagnosis Comments EXTERNAL CLINICAL LAB 08/22/2024 LIPID PANEL Routine 10/10/2022 from Last 3 Months or Most Recently Relevant to Health Maintenance Results * External clinical lab (08/22/2024) us Provider [facility] LAB BLOOD ORDERABLES Fin al Result * Lipid panel (10/10/2022) LDL/HDL Ratio 2 0 - 4 Triglycerides 77 0 - 150 mg/dL Cholesterol 171 0 - 200 mg/dL HDL 78 >=40 mg/dL LDL Cholesterol 78 0 - 100 mg/dL Blood Venous blood specimen / Unknown [facility] Provider LAB BLOOD ORDERABLES Chloe l Result from Last 3 Months or Most Recently Relevant to Health Maintenance Insurance [facility] PLAN Care Teams Loom Changer Relationship Specialty Start Date End Date Nola Loja MD [address] [place] [address] [phone] PCP - General Internal Medicine 02/19/24
[2024-10-21 13:53] LABS: Ferritin 23 ng/mL (20-250)
== END 2024-10-21 11:00 | disposition home or self-care (01) ==
LOC: HO.BBR 10:59
PROVIDERS: PCP Family Medicine; Visit Provider Internal Medicine Gastroenterology
DX: E83.110 Hereditary hemochromatosis (principal)
CPT/HCPCS: 36415; 82728

== ENCOUNTER 2024-10-30 21:32 | Emergency (ER) | payer OTHER, SELFPAY ==
--- NOTE | 2024-10-30 | ECG_ITS ---
Test Reason : cp Blood Pressure : */* mmHG Vent. Rate : 101 BPM Atrial Rate : 101 BPM P-R Int : 150 ms QRS Dur : 104 ms QT Int : 344 ms P-R-T Axes : 72 253 58 degrees QTcB Int : 446 ms Sinus tachycardia Possible Left atrial enlargement Right superior axis deviation Incomplete right bundle branch block Right ventricular hypertrophy Abnormal ECG No previous ECGs available Referred By: Generic ED Physician Electronically Signed By: DON DE LA ROSA MD
--- NOTE | ~2024-10-30 | XR_ITS ---
CLINICAL HISTORY: pain 2 view chest x-ray Comparison: None provided Findings: Heart size is normal. Mild interstitial thickening especially in mid to lower right lung. No consolidation, pleural effusion or pneumothorax. No acute fracture. IMPRESSION: 1. Mild interstitial thickening in right mid to lower lung may represent focal interstitial pneumonia or mild edema. Correlate clinically. This document has been electronically signed by: Loida Lieberman MD on 10/30/2024 22:56:35
[2024-10-30 21:54] VITALS: BP 124/63; PULSE 96; RESP 18; TEMP 37.1; O2SAT 97; BMI 18.5
--- OUTSIDE RECORDS SUMMARY | 2024-10-30 22:47 | XMS_ITS | Clinical Summary ---
Author Organization [facility] 299 [facility] Address [address] [place] [address] Phone Care Team Providers Care Director Energy Name Role Phone Nola Loja MD Primary [...] region 11/18/2017 Overview (01/15/2024): 12/17 Minimal at [facility] Recommend posture and hamstring stretching Short [...] Team Description 08/24/2024 Telephone Gastroenterology - [address] [facility] [address] [place] [address] Macrina Oliver MA 08/18/2024 Telephone Gastroenterology - [address] [facility] [address] [place] [phone] Macrina Oliver MA from Last 3 Months Immunizations Name Administration Dates Next Due DTaP (Infanrix) 6wks to less than 7yo ,04/06/2006,07/04/2003,10/21,2002,2002 [id number] (Pentacel) 2mo to less than 5yo 09/15/2006,08/11/2006,07/04/2003,10/21,2002,2002 [...] Date/Time Associated Diagnosis Comments EXTERNAL CLINICAL LAB 10/24/2024 EXTERNAL CLINICAL LAB 08/22/2024 LIPID PANEL Routine 10/10/2022 from Last 3 Months or Most Recently Relevant to Health Maintenance Results * External clinical lab (10/24/2024) Only the most recent of2 resultswithin the time period is included. us Provider [facility] LAB BLOOD ORDERABLES Fin al Result * Lipid panel (10/10/2022) LDL/HDL Ratio 2 0 - 4 Triglycerides 77 0 - 150 mg/dL Cholesterol 171 0 - 200 mg/dL HDL 78 >=40 mg/dL LDL Cholesterol 78 0 - 100 mg/dL Blood Venous blood specimen / Unknown [facility] Provider LAB BLOOD ORDERABLES Chloe l Result from Last 3 Months or Most Recently Relevant to Health Maintenance Insurance [facility] PLAN Care Teams Director Energy Relationship Specialty Start Date End Date Nola Loja MD [address] [place] [phone] PCP - General Internal Medicine 02/19/24
[2024-10-30 22:56] VITALS: BP 127/78; PULSE 100; RESP 15; TEMP 36.8; O2SAT 97
[2024-10-31 00:33] VITALS: BP 111/60; PULSE 91; RESP 16; TEMP 36.9; O2SAT 99
--- NOTE | 2024-10-31 02:36 | ED.GENADULT ---
HPI - General Adult General Chief complaint: General Medical Stated complaint: CP (right side near ribs) Time Seen by Provider: 10/31/24 02:18 Source: patient Limitations: no limitations History of Present Illness ED Provider: Paola Pena PA-C HPI narrative: 24-year-old male with a history of hemochromatosis presents with right lower chest pain x2 days. Pain worse with coughing and deep inspiration. Worse with movement. Denies no mechanism of injury, no active cough or cold symptoms no fever. No abdominal pain, nausea vomiting. Related Data Previous Rx's ?Medication ?Instructions ?Recorded amoxicillin 500 mg capsule 500 mg PO Q8H #29 caps 10/31/24 azithromycin 250 mg tablet 250 mg PO DAILY 4 days #4 tabs 10/31/24 Allergies Allergy/AdvReac Type Severity Reaction Status Date / Time No Known Allergies Allergy Unverified 10/30/24 21:57 Review of Systems Review of Systems: Yes all other systems are reviewed and are negative Constitutional: Constitutional: Denies fatigue and Denies fever(s) Cardiovascular: Cardiovascular: Reports chest pain and Denies dyspnea Respiratory: Respiratory: Denies cough and Denies dyspnea Gastrointestinal: Gastrointestinal: Denies abdominal pain, Denies nausea and Denies vomiting Endocrine: Endocrine: Denies fatigue [facility] Past Medical History Attestation statement: The following information was validated with the patient. Social History Social History Smoked in Last 30 Days: No Use of substances other than those prescribed or required for medical reasons: No Advance Directives: No Advance Directives Information Provided: No Physical Exam ED Vital Signs: Vital Signs - 24 hr 10/30/24 21:54 10/30/24 22:56 10/31/24 00:33 Temperature 98.8 F 98.2 F 98.4 F Pulse Rate 96 100 91 Respiratory Rate 18 15 16 Blood Pressure 124/63 127/78 111/60 Pulse Oximetry 97 97 99 Oxygen Delivery Method Room Air Room Air Room Air BMI result Body Mass Index 18.5 Const Other: Alert well-appearing Orientation/consciousness: patient oriented x3 Resp Other: Lungs clear to auscultation, nonlabored respirations Cardio Other: Normal peripheral perfusion Skin Other: Warm dry no rash Neuro General: patient oriented x3, gait normal, no focal motor deficits and CN's II-XI intact bilaterally Psych Other: Cooperative Medical Decision Making Medical Decision Making MDM Narrative: 24-year-old male with a history of hemochromatosis presents with right lower chest pain x2 days. Pain worse with coughing and deep inspiration. Worse with movement. Denies no mechanism of injury, no active cough or cold symptoms no fever. No abdominal pain, nausea vomiting. No relevant chronic issues History: Per patient I have considered the following differential diagnoses: Musculoskeletal pain, ACS, viral syndrome, pneumonia, costochondritis, Plan: The patient is a having very focal right mid to lower anterior rib pain. On chest x-ray, it appears he has pneumonia. We will send with antibiotics. He may have some degree of costochondritis given concurrent infection, he has no mechanism of injury to suggest chest wall pain/strain. This presentation is not consistent with ACS, and the patient has no risk factors for coronary artery disease. I have independently reviewed the following tests: EKG: Sinus tachycardia, rate of 101, no ischemic changes no ectopy, QTC 446, incomplete right bundle noted Chest x-ray:Findings: Heart size is normal. Mild interstitial thickening especially in mid to lower right lung. No consolidation, pleural effusion or pneumothorax. No acute fracture. IMPRESSION: 1. Mild interstitial thickening in right mid to lower lung may represent focal interstitial pneumonia or mild edema. Correlate clinically. Differential Diagnosis Differential Diagnoses: The differential diagnosis associated with the presentation includes See MDM Admission/Observation Consideration of admission/observation: Escalation of care including admission/observation considered Not applicable Independent Interpretation I performed an independent interpretation of an: EKG Radiology Impression Discussion of test interpretation with radiology: I have reviewed the radiologist's reading. Discharge Plan Discharge Clinical Impression: Right middle lobe pneumonia Patient Disposition: Home, Self-Care Instructions: Community Acquired Pneumonia (ED) Additional Instructions: You were found to have pneumonia on your chest x-ray. See home care instructions. Take the amoxicillin as directed, take the azithromycin as directed. Follow up with your primary care provider as needed. Prescriptions: New amoxicillin 500 mg capsule 500 mg PO Q8H Qty: 29 0RF azithromycin 250 mg tablet 250 mg PO DAILY 4 Days Qty: 4 0RF Rx Instructions: start on day 2 of therapy Print Language: Bulgarian
[2024-10-31 02:41] VITALS: BP 129/86; PULSE 91; RESP 16; TEMP 36.7; O2SAT 99
[2024-10-31 02:53] VITALS: BP 129/86; PULSE 91; RESP 16; TEMP 36.7; O2SAT 99
== END 2024-10-31 02:55 | disposition home or self-care (01) ==
PROVIDERS: Emergency Provider Emergency Medicine; PCP Family Medicine
DX: J18.1 Lobar pneumonia, unspecified organism (principal); R07.1 Chest pain on breathing; R05.9 Cough, unspecified; R00.0 Tachycardia, unspecified; I45.10 Unspecified right bundle-branch block
CPT/HCPCS: 71046; 93005; 99283; 99284

== ENCOUNTER → 2024-10-30 21:42 | Outpatient (BNV) | payer OTHER, SELFPAY | PROVIDERS: Emergency Provider Emergency Medicine; PCP Family Medicine; Visit Provider Internal Medicine Cardiovascular Disease | DX: I45.10 Unspecified right bundle-branch block (principal); I51.7 Cardiomegaly; R00.0 Tachycardia, unspecified | CPT/HCPCS: 93010 ==

== ENCOUNTER → 2024-10-30 22:05 | Outpatient (BNV) | payer OTHER, SELFPAY | PROVIDERS: PCP Family Medicine; Visit Provider Specialist | DX: J84.9 Interstitial pulmonary disease, unspecified (principal) | CPT/HCPCS: 71046 ==

== ENCOUNTER 2024-12-02 10:58 | Outpatient (REF) | payer OTHER, SELFPAY ==
--- OUTSIDE RECORDS SUMMARY | 2024-12-02 12:16 | XMS_ITS | Clinical Summary ---
Author Organization [facility] [address] [facility] Address [address] [place] [address] Phone Care Team Providers Care Recreational Resort Manager Name Role Phone Nola Loja MD [...] region 11/18/2017 Overview (01/15/2024): 12/17 Minimal at [facility] Recommend posture and hamstring stretching [...] (pervasive developmental disorder) 9 Development delay 07/07/2008 Immunizations Immunization Administration Dates Next Due DTaP (Infanrix) 6wks to less than 7yo ,04/06/2006,07/04/2003,10/21,2002,2002 [id number] (Pentacel) 2mo to less than 5yo 09/15/2006,08/11/2006,07/04/2003,10/21,2002,2002 [...] to 49 Years) (1 of 1 - PPSV23, PCV20, or PCV21) 2008 2004, 2002, 2002, Additional history exists Meningococcal B Vaccine (1 of 2 - Standard) 2018 HIV Screening 02/01/2022 Hepatitis C Screening 02/01/2022 Social Influencers of Health Screening 02/01/2022 DTaP,Tdap,and Td Vaccines (7 - Td or Tdap) 10/01/2023 09/30/2013, 09/15/2006, 08/11/2006, Additional history exists Depression Screening 03/02/2024 COVID-19 Vaccine (3 - season) 2024 09/14/2020, 08/17/2020 Influenza Vaccine (#1) 2024 , 01/25/2020, 11/18/2017, Additional history exists Cholesterol Screening (Lipid Panel) 10/11/2027 10/10/2022 RSV Immunization Adult Patients (1 - 1-dose 75+ series) 2077 Hepatitis B Vaccines Completed 08/11/2006, 01/23/2003, 2002, [...] Associated Diagnosis Comments EXTERNAL CLINICAL LAB 10/24/2024 LIPID PANEL Routine 10/10/2022 from Last 3 Months or Most Recently Relevant to Health Maintenance Results * External clinical lab (10/24/2024) us Provider [facility] LAB BLOOD ORDERABLES Fin al Result * Lipid panel (10/10/2022) LDL/HDL Ratio 2 0 - 4 Triglycerides 77 0 - 150 mg/dL Cholesterol 171 0 - 200 mg/dL HDL 78 >=40 mg/dL LDL Cholesterol 78 0 - 100 mg/dL Blood Venous blood specimen / Unknown [facility] Provider LAB BLOOD ORDERABLES Chloe l Result from Last 3 Months or Most Recently Relevant to Health Maintenance Insurance [facility] [place] [id number] Care Teams Recreational Resort Manager Relationship Specialty Start Date End Date Nola Loja MD [address] [place] [address] PCP - General Internal Medicine 02/19/24
== END 2024-12-02 10:59 | disposition home or self-care (01) ==
LOC: HO.BBR 10:58
PROVIDERS: PCP Family Medicine; Visit Provider Internal Medicine Gastroenterology
DX: Z13.89 Encounter for screening for other disorder (principal)

== ENCOUNTER 2025-01-13 09:47 | Outpatient (REF) | payer OTHER, SELFPAY | END 2025-01-13 09:48 | disposition home or self-care (01) | LOC: HO.BBR 09:47 | PROVIDERS: PCP Family Medicine; Visit Provider Internal Medicine Gastroenterology | DX: Z13.89 Encounter for screening for other disorder (principal) ==